=== PATIENT | male | born 1945 | race Caucasian/White ===

== ENCOUNTER 2023-09-29 20:28 | Inpatient (IN) | payer OTHER, SELFPAY ==
[2023-09-29] VITALS (11 sets, daily range): BP systolic 173–196; BP diastolic 66–85; BMI 25.5
--- NOTE | 2023-09-29 12:26 | ED.GENMED ---
History of Present Illness
<Candace Church PA-C - Last Filed: 09/29/23 20:37>
General
Chief Complaint: Abdominal Pain
Source: patient
Exam Limitations: none
Time Seen by Provider: 09/29/23 12:25
Nursing documentation reviewed up to this point in time: agreed with
Travel History
Have you had any contact with someone who has COVID-19?: No
Do you have any symptoms of coronavirus? Fever > 100 degrees, chills, cough, shortness of breath, sore throat, loss of taste or smell, muscle aches, or headache?: No
History of Present Illness
History of Present Illness:
78-year-old male with a past medical history of Alzheimer's dementia, stroke, asthma, coronary artery disease, hypothyroidism presenting the emergency department today with right upper quadrant pain x 2 days and loose stools since last night.
Patient is a poor historian due to his dementia, but reports that he has been complaining to her of pain in his right abdomen. Patient also has associated nausea with this but not had any vomiting. Patient denies fevers or chills.
reports that he has had a decreased appetite. Patient also has had radiation of this pain to the back. Currently, he denies pain but said he has been complaining nonstop at home. reports that he has a history of urosepsis and
cholelithiasis and both of those instances he was asymptomatic. also reports that he has been complaining to her that he feels generally ill and unwell. Patient himself denies dysuria, hematuria.
Past History
<Candace Church PA-C - Last Filed: 09/29/23 20:37>
Past History
ED Past Medical History: CAD, HTN, Hypercholesterolemia and Other (vertigo)
ED Past Surgical History: Cardiac (bypass 1987)
PSI?: No
Social History
Tobacco: Non-smoker
Alcohol: None
Drug: None
Personal:
Living: with family
Review of Systems
<Candace Church PA-C - Last Filed: 09/29/23 20:37>
Review of Systems
All Other Systems: ROS reviewed and negative except as documented in HPI and ROS
Phy Exam
<Candace Church PA-C - Last Filed: 09/29/23 20:37>
Physical Exam
Physical Exam:
Vitals: Patient's vital signs are stable
General: Patient is well-appearing, no acute distress
Skin: Warm dry, no rashes or lesions
Head: Normocephalic, atraumatic
Eyes: EOMs intact, PERRLA. No scleral icterus.
Cardiac: Regular rate and rhythm no murmurs
Pulm: Normal respiratory effort, no wheezes, rales, rhonchi
Abdomen: Patient has tenderness palpation in the right upper and right lower quadrant. Abdomen nondistended, no organomegaly.
Neuro: Awake and alert, patient moving all extremities.
Course
<JANNIE Myers Last Filed: 09/29/23 20:37>
Orders/Labs/Results
Orders:
Orders
09/29/23 12:42
IV Insert/Care/Rem.- Treatment PRN
09/29/23 12:51
Complete Blood Count/With Diff Urgent
Comprehensive Metabolic Panel Urgent
Lipase Urgent
09/29/23 14:31
Urinalysis Reflex To Culture Urgent
Date Specimen was Collected: 09/29/23
Time Specimen was Collected: 12:50
09/29/23 17:07
CT Abd/pelvis W Iv Cont Urgent
Comment:
Reason For Exam: right sided abdominal pain
09/29/23 18:31
STOOL [C difficile Antigen & Toxins] Urgent
JEANETTE Source: Feces/Stool
Specimen Description:
Stool Culture Urgent
JEANETTE Source: Feces/Stool
Specimen Description:
09/29/23 19:17
CefTRIAXone [Rocephin] 2,000 mg IV NOW STA
MetroNIDAZOLE 500 MG/100 ML [Flagyl 500 mg] 100 ml IV NOW
09/29/23 19:34
Sterile Water [Sterile Water For Injection] 20 ml .ROUTE .STK-MED
09/29/23 19:45
Admit/Transfer Patient As Directed
Co-Sign Provider:
Level of Care: Inpatient admission
Assign to:: Medical/Surgical
Physician / Group: htay
Diagnosis: Acute enterocolitis.
Reason for Hospitalization: Acute enterocolitis.
Expected length of stay greater than two midnights?: Yes
ELOS- Estimated Length of Stay in days: 3
I certify the patient meets the requirements for IP care: Yes
09/29/23 19:47
Code Status As Directed
Resuscitation Status: Full Code
Abnormal Lab Results
09/29/23
12:51
WBC 12.7 H 10^3/uL
(4.8-10.8)
RBC 4.65 L 10^6/uL
(4.70-6.10)
Hgb 11.4 L g/dL
(13.0-18.0)
Hct 37.6 L %
(39.0-52.0)
MCH 24.5 L pg
(27.0-31.0)
MCHC 30.3 L g/dL
(33.0-37.0)
RDW 16.4 H %
(11.5-14.5)
Absolute Neuts (auto) 11.1 H 10^3/uL
(1.4-6.5)
Absolute Lymphs (auto) 0.7 L 10^3/uL
(1.2-3.4)
Absolute Monos (auto) 0.8 H 10^3/uL
(0.1-0.6)
Neutrophils % 87.4 H %
(42.2-75.2)
Lymphocytes % 5.1 L %
(20.5-51.1)
Potassium 5.2 H mmol/L
(3.5-5.1)
09/29/23 12:51
09/29/23 12:51
Vital Signs
Initial and Last Documented VS:
Initial Vital Signs
Temp Pulse Resp BP Pulse Ox
98.3 F 60 18 175/82 98
09/29/23 12:18 09/29/23 12:18 09/29/23 12:18 09/29/23 12:18 09/29/23 12:18
Last Documented Vital Signs
Temp Pulse Resp BP Pulse Ox
98.0 F 60 18 191/78 98
09/29/23 19:56 09/29/23 12:18 09/29/23 12:18 09/29/23 19:01 09/29/23 12:18
<Brett Luu MD - Last Filed: 09/29/23 17:44>
Orders/Labs/Results
Orders:
Orders
09/29/23 12:42
IV Insert/Care/Rem.- Treatment PRN
09/29/23 12:51
Complete Blood Count/With Diff Urgent
Comprehensive Metabolic Panel Urgent
Lipase Urgent
09/29/23 14:31
Urinalysis Reflex To Culture Urgent
Date Specimen was Collected: 09/29/23
Time Specimen was Collected: 12:50
09/29/23 17:07
CT Abd/pelvis W Iv Cont Urgent
Comment:
Reason For Exam: right sided abdominal pain
09/29/23 18:31
STOOL [C difficile Antigen & Toxins] Urgent
JEANETTE Source: Feces/Stool
Specimen Description:
Stool Culture Urgent
JEANETTE Source: Feces/Stool
Specimen Description:
09/29/23 19:17
CefTRIAXone [Rocephin] 2,000 mg IV NOW STA
MetroNIDAZOLE 500 MG/100 ML [Flagyl 500 mg] 100 ml IV NOW
09/29/23 19:34
Sterile Water [Sterile Water For Injection] 20 ml .ROUTE .K-MED
09/29/23 19:45
Admit/Transfer Patient As Directed
Co-Sign Provider:
Level of Care: Inpatient admission
Assign to:: Medical/Surgical
Physician / Group: htay
Diagnosis: Acute enterocolitis.
Reason for Hospitalization: Acute enterocolitis.
Expected length of stay greater than two midnights?: Yes
ELOS- Estimated Length of Stay in days: 3
I certify the patient meets the requirements for IP care: Yes
09/29/23 19:47
Code Status As Directed
Resuscitation Status: Full Code
Abnormal Lab Results
09/29/23
12:51
WBC 12.7 H 10^3/uL
(4.8-10.8)
RBC 4.65 L 10^6/uL
(4.70-6.10)
Hgb 11.4 L g/dL
(13.0-18.0)
Hct 37.6 L %
(39.0-52.0)
MCH 24.5 L pg
(27.0-31.0)
MCHC 30.3 L g/dL
(33.0-37.0)
RDW 16.4 H %
(11.5-14.5)
Absolute Neuts (auto) 11.1 H 10^3/uL
(1.4-6.5)
Absolute Lymphs (auto) 0.7 L 10^3/uL
(1.2-3.4)
Absolute Monos (auto) 0.8 H 10^3/uL
(0.1-0.6)
Neutrophils % 87.4 H %
(42.2-75.2)
Lymphocytes % 5.1 L %
(20.5-51.1)
Potassium 5.2 H mmol/L
(3.5-5.1)
09/29/23 12:51
09/29/23 12:51
Vital Signs
Initial and Last Documented VS:
Initial Vital Signs
Temp Pulse Resp BP Pulse Ox
98.3 F 60 18 175/82 98
09/29/23 12:18 09/29/23 12:18 09/29/23 12:18 09/29/23 12:18 09/29/23 12:18
Last Documented Vital Signs
Temp Pulse Resp BP Pulse Ox
98.0 F 60 18 191/78 98
09/29/23 19:56 09/29/23 12:18 09/29/23 12:18 09/29/23 19:01 09/29/23 12:18
<Candace Church PA-C - Last Filed: 09/29/23 20:37>
MDM/Problems Addressed
Differential Diagnosis Includes:
Differentials include cholelithiasis, choledocholithiasis, cholecystitis, appendicitis, nephrolithiasis, gastroenteritis, C. difficile infection
MDM/Problems Addressed:
Abdominal pain
loose stools
Chronic conditions affecting care: HTN, CAD and Other (common bile duct stone, nephrolithiasis, hypothyroidism, hyperlipidemia)
Acute Exacerbation and/or Progression of Chronic Illness: HTN and CAD
<Candace Church PA-C - Last Filed: 09/29/23 20:37>
*Pulse Oximetry
Patient hypoxic: no
*Critical Care Note
Total Time (30-74mins, 75-104mins- exclusive of procedures): Not Applicable
Data Reviewed
Review of Other/Old Records Reveals: Records (reviewed ER physician documentation from 05/17/23) and Discharge Summary (Reviewed discharge summary from 05/24/2023)
Source: patient
<Candace Church PA-C - Last Filed: 09/29/23 20:37>
Patient Management
Escalation/DeEscalation of care consider admission/obs:
78 y/o male hx of choledocholithiasis, HTN, CAD, Alzheimer's dementia, presenting to the ER today with RUQ pain, nausea, diarrhea. CT shows gallbladder wall thickening but no cystic duct obstruction. VSS, LFTs/bili WNL. History and physical
concerning for cholecystitis and enterocolitis. Will admit for acute acalculous cholecystitis, ceftriaxone and metronidazole started.
ED Attending Note
<Candace Church PA-C - Last Filed: 09/29/23 20:37>
-
Portions of this chart may have been created with voice recognition software.� Occasional wrong word or��sound alike� substitutions may have occurred due to the inherent limitations of voice recognition software.
<Brett Luu MD - Last Filed: 09/29/23 17:44>
ED Attending Note
Patient seen and examined by attending physician: Yes
ED Attending Note:
HPI: 78-year-old male with past medical history as documented presents with his for evaluation of abdominal pain and loose stools. Patient is a very poor historian due to significant dementia and provides most of history. She says that
patient began complaining of some abdominal pain yesterday and seem to be pointing towards his right upper quadrant. She says that since yesterday he has had multiple episodes of loose voluminous stools that are foul-smelling. Brought to the
emergency room for assessment. She denies any vomiting. Patient has not had a fever. He has not had any respiratory symptoms. She says he has not had similar symptoms in the past.
ROS: Positive for abdominal pain and diarrhea; negative for vomiting, fever, chills, urinary symptoms
Physical exam:
General: Awake, alert, no acute distress
Head: Normocephalic, atraumatic
Eyes: Conjunctiva normal, sclera anicteric
Throat: Airway intact, handling secretions
Neck: Trachea midline
Lungs: Clear to auscultation bilaterally, no wheezing, rales, rhonchi
Heart: Regular rate and rhythm, no murmurs, gallops, or rubs
Abd: Soft, non distended, mildly tender right upper quadrant and epigastric region with no peritoneal signs and no abdominal masses
Neuro: No gross deficits
Skin: no rash
Extremities: Warm well-perfused
Differential diagnosis: Gastroenteritis, cholecystitis, cholelithiasis, pancreatitis, colitis
Medical decision m[age]-year-old male presents for evaluation of abdominal pain apparently worse right upper quadrant associated with profuse diarrhea. Hypertensive but otherwise normal vitals here. Exam as above. Plan to place an IV check
labs including a CBC and a CMP, lipase; will check CT of the abdomen pelvis. Will monitor closely reassess after the above. Suspect likely an enteritis or colitis and can be treated conservatively.
Chronic conditions affecting care: Dementia
Acute exacerbation or progression of chronic illness: Acutely hypertensive
History source: Patient,
Data reviewed: Prior labs, prior visits, medications
Medications/testing considered: N/A
Social determinants of health: N/A
Discussion with other providers: N/A
Discharge Plan
Departure
Patient Disposition: Admit
Date of Disposition: 09/29/23
Time of Disposition: 19:17
Presentation/result/management discussed w/ accepting MD/DO: Hospitalist
Patient with high blood pressure during this ER visit?: Yes
Condition: Fair
Discharge Problem:
Cholecystitis, Enterocolitis
Prescriptions:
No Action
famotidine [Pepcid AC] 20 MG tablet
20 mg PO BID
Co Q-10 300 MG capsule
300 mg PO HS
losartan 50 mg Tablet
50 mg PO HS
Aimovig Autoinjector 140 mg/mL Auto-Injector
140 mg SC QMONTH
Ubrelvy 50 mg Tablet
50 mg PO PRN PRN (Reason: migraine)
Rx Instructions:
10 tablet per month
levothyroxine 75 mcg Tablet
75 mcg PO DAILY
paroxetine HCl [Paxil] 10 mg Tablet
10 mg PO HS
donepezil 5 mg Tablet
5 mg PO DAILY
Men's 50 Plus Multivitamin 400-20-370 mcg Tablet
1 tab PO NOON
nifedipine 30 mg tablet extended release
30 mg PO HS
ibuprofen 600 mg Tablet
600 mg PO Q6H PRN (Reason: mild pain )
ezetimibe [Zetia] 10 mg Tablet
10 mg PO DAILY
memantine 10 mg Tablet
10 mg PO BID@1200,2200
aspirin 81 mg Tablet,Delayed Release (Dr/Ec)
81 mg PO DAILY
Referrals:
Sangita Joyce DO [Family Provider] -
Interventions
Interventions:
*Risk Screen - Suicide Last Done: 09/29/23 13:03
*General Assessment Last Done: 09/29/23 12:18
*Neglect/Abuse Screening Last Done: 09/29/23 13:03
ED- Fall Risk Assessment Last Done: 09/29/23 13:03
*ED COVID-19 Vaccine History Last Done: 09/29/23 12:18
GA-Oqhpab-Ywzsjjmson Assessment Last Done: 09/29/23 13:03
Discharge Date and Time
Print Language: CHINESE
[2023-09-29 13:13] LABS: % Basophils 0.4 % (0-2); % Eosinophils 0.5 % (0-6); % Immature Granulocytes 0.3 % (0-0.5); % Lymphocytes 5.1 % (20.5-51.1); % Monocytes 6.3 % (1.7-9.3); % Neutrophils 87.4 % (42.2-75.2); Absolute Basophils 0.1 10^3/uL (0-0.2); Absolute Eosinophils 0.1 10^3/uL (0-0.7); Absolute Lymphocytes 0.7 10^3/uL (1.2-3.4); Absolute Monocytes 0.8 10^3/uL (0.1-0.6); Absolute Neutrophils 11.1 10^3/uL (1.4-6.5); Hematocrit 37.6 % (39.0-52.0); Hemoglobin 11.4 g/dL (13.0-18.0); Mean Corp Hgb Conc. 30.3 g/dL (33.0-37.0); Mean Corpuscular Hgb 24.5 pg (27.0-31.0); Mean Corpuscular Volume 80.9 fL (80.0-94.0); Mean Platelet Volume 8.8 fL (7.4-10.4); Nucleated Red Blood Cells % 0 % (-); Platelet Count 233 10^3/uL (130-400); Red Blood Cell Count 4.65 10^6/uL (4.70-6.10); Red Cell Dist. Width 16.4 % (11.5-14.5); White Blood Cell Count 12.7 10^3/uL (4.8-10.8)
[2023-09-29 13:29] LABS: ALT (SGPT) 19 U/L (0-50); AST (SGOT) 21 U/L (17-59); Albumin 4.1 g/dl (3.5-5.0); Alkaline Phosphatase 80 U/L (38-126); Blood Urea Nitrogen 18 mg/dl (9-20); Calcium 9.4 mg/dl (8.4-10.2); Carbon Dioxide 30 mmol/L (22-30); Chloride 105 mmol/L (98-107); Glucose 98 mg/dl (70-99); Lipase 149 U/L (23-300); Potassium 5.2 mmol/L (3.5-5.1); Sodium 137 mmol/L (135-145); Total Bilirubin 0.6 mg/dl (0.2-1.3); Total Protein 6.8 g/dl (6.3-8.2); eGFR > 60.00
[2023-09-29 14:41] LABS: Urine Albumin Trace (Neg - Trace); Urine Bilirubin Negative (Negative); Urine Character Clear (Clear); Urine Color Yellow; Urine Glucose Negative (Negative); Urine Ketone Negative (Negative); Urine Leukocyte Negative (Negative); Urine Nitrite Negative (Negative); Urine Occult Blood Negative (Negative); Urine Urobilinogen Negative (Neg - 1+)
--- NOTE | 2023-09-29 19:40 | HPS.HSE ---
Addendum entered and electronically signed by Bernabe Erwin MD 09/30/23 12:49:
Correction for typo in HPI
78F Poor Historian HX Dementia (CLOVIS) stroke, CAD , choledocholithiasis <del>cholecystectomy</del>, known Biliary air from previous ERCP/sphincterotomy <del>cholecystectomy</del> seen at ER for evaluation for acute RUQ abdominal pain.
Addendum entered and electronically signed by Bernabe Erwin MD 09/29/23 20:17:
Correction:
@ ER
Afebrile , Hemodynamically stable
Mildly elevated WCC <del>nl</del> <del>WCC</del>
unremarkable LFTs of RUQ abdominal pain.
Original Note:
Family Physician
-
Family Physician: Sangita Joyce
Chief Complaint
-
RUQ abdominl pain
History of Present Illness
78F Poor Historian HX Dementia (CLOVIS) stroke, CAD , cholecystectomy, known Biliary air from previous cholecystectomy seen at ER for evaluation for acute RUQ abdominal pain.
RUQ abdominal pain;
Acute onset x last 2days
Pointing toward RUQ abdomen
+ Nausea but no vomiting
+ loose stools
Poor appetite
No fever and chills
HX Choledocholithiasis
@ ER
Afebrile , Hemodynamically steble
nl WCC
unremarkable LFTs of RUQ abdominal pain.
Medical History
Past Medical History
Past Medical History: Reports Other
Additional Past Medical History:
Alzheimer's dementia without behavioral problems
History of cholecystectomy
Biliary air from previous cholecystectomy
Essential hypertension
Hypothyroidism
History of coronary artery disease and bypass
History of stroke
History of parathyroid surgery in 1999
Migraine
Choledocholithiasis
History vertigo
Past Surgical History: Reports Cardiac (Cardiac (bypass 1987)))
Social History
Tobacco: Non-smoker
Alcohol: None
Drug: None
Personal:
Living: With Family
Family History
Family History: Not pertinent
Allergies / Home Medications
Allergies reflects when Allergies were last updated in [facility].
Home Medications with original date entered in [facility]
Allergy/Medication List:
Allergies
Allergy/AdvReac Type Severity Reaction Status Date / Time
No Known Allergies Allergy Verified 09/29/23 12:21
Home Medications
coenzyme Q10 300 mg capsule (Co Q-10) 300 mg PO HS Supplement 06/28/17
famotidine 20 mg tablet (Pepcid AC) 20 mg PO BID Gastrointestinal issue 06/28/17
erenumab-aooe 140 mg/mL subcutaneous auto-injector (Aimovig Autoinjector) 140 mg SC QMONTH migraine 02/15/22
losartan 50 mg tablet 50 mg PO HS Blood pressure 02/15/22
ubrogepant 50 mg tablet (Ubrelvy) 50 mg PO PRN PRN migraine 02/15/22
levothyroxine 75 mcg tablet 75 mcg PO DAILY Thyroid 12/29/22
paroxetine HCl 10 mg tablet (Paxil) 10 mg PO HS 05/19/23
donepezil 5 mg tablet 5 mg PO DAILY 06/18/23
wwytsextwjvv-xge-zdurm acid-vit K-lycop 400 mcg-20 mcg-370 mcg tablet (Men's 50 Plus Multivitamin) 1 tab PO NOON 06/18/23
nifedipine 30 mg tablet,extended release 30 mg PO HS 06/18/23
aspirin 81 mg tablet,delayed release 81 mg PO DAILY 09/29/23
ezetimibe 10 mg tablet (Zetia) 10 mg PO DAILY 09/29/23
ibuprofen 600 mg tablet 600 mg PO Q6H PRN mild pain 09/29/23
memantine 10 mg tablet 10 mg PO BID@1200,2200 09/29/23
Review of Systems
-
Constitutional: Reports No Symptoms
EENT: Reports No Symptoms
Respiratory: Reports No Symptoms
Cardiac: Reports No Symptoms
Abdomen/GI: Reports See HPI, Abdominal Pain, Nausea and Diarrhea; Denies Vomiting
: Reports No Symptoms
Musculoskeletal: Reports No Symptoms
Skin: Reports No Symptoms
Neurological: Reports No Symptoms
Endocrine: Reports No Symptoms
Hematologic/Lymphatic: Reports No Symptoms
Psych: Reports No Symptoms
Physical Exam
Vital Signs
Vital Signs
Temp Pulse Resp BP Pulse Ox
98.3 F 60 18 177/76 98
09/29/23 12:18 09/29/23 12:18 09/29/23 12:18 09/29/23 16:00 09/29/23 12:18
Physical Exam
General: Well Developed and Comfortable; No Appears in Distress
HEENT: NormoCephalic, Anicteric and Moist mucous membranes; No Pharyngeal Efythema
Respiratory: Clear; No Wheezes, Rales or Rhonchi
Cardiac: S1/S2, Regular Rhythm and Bradycardia
Breast: Deferred by me
GI: Soft, Non Distended, Normal Bowel Sounds and Tender (at RUQ and RLQ )
Rectal: Deferred by Provider
Genito-urinary: Deferred by me
Musculoskeletal: No Edema
Skin: Warm and Dry
Neuro: Awake, Alert and Other (pleasantly confused )
Psych: Calm
Laboratory Results
-
09/29/23 12:51
09/29/23 12:51
Laboratory Results
Total Bilirubin 0.6 mg/dl (0.2-1.3) 09/29/23 12:51
AST 21 U/L (17-59) 09/29/23 12:51
ALT 19 U/L (0-50) 09/29/23 12:51
Alkaline Phosphatase 80 U/L (38-126) 09/29/23 12:51
Lipase 149 U/L (23-300) 09/29/23 12:51
Data Reviewed
-
CT Scan: Report Reviewed by me
Lab Data: Labs Reviewed by me
Old Records: Reviewed
Impression/Plan
-
Reviewed VS: Afebrile HR 60 BP 190/80 - 175/75 RR18 POx 98
Data
WCC 12.7
Hgb 11.4 - baseline hi 9s to mid 10s
K 5.2
Cr 1.2 eGFR > 60
nl TB nl AST nl ALT nl AKP
nl Lipase
NEG UA
09/29/23 CT Abd/pelvis W Iv Cont
1. Moderate wall thickening and submucosal edema involving distal ileal small bowel loops in the lower abdomen and pelvis (including the terminal ileum) in the cecum and ascending colon suggesting an ACUTE ENTEROCOLITIS (probably infectious and
less likely inflammatory or ischemic in etiology).
2. Mild to moderate gallbladder wall thickening and edema which appears new from 05/18/2023, but no evidence for cystic duct obstruction given the presence of air in the gallbladder lumen.
3. Severe pneumobilia in the left lobe of the liver consistent with a previous biliary sphincterotomy.
4. Mild hepatomegaly.
5. Severe diverticulosis in the distal descending and sigmoid colon.
6. Severely enlarged prostate gland.
7. Moderate diffuse urinary bladder wall thickening and trabeculation which is likely secondary to chronic urinary bladder outlet obstruction (possible superimposed acute cystitis).
8. Fusiform infrarenal abdominal aortic aneurysm (2.8 cm AP dimension).
9. Severe calcific atherosclerotic plaque in the abdominal aorta, iliac, and femoral arteries.
10. Multiple nonobstructing left intrarenal calculi.
11. Moderate number of bilateral renal cysts.
Last hospitalist admission: 05/18/23 - 05/23/23
Complicated urinary tract infection from Escherichia coli
Large obstructing right ureteral stone and obstructive uropathy
Acute kidney injury
Acute blood loss anemia
Hematuria
Left arm superficial venous thrombosis
ASSESSMENT & PLAN
CT suggestive of Acute enterocolitis. probably infectious and less likely inflammatory or ischemic in etiology
- clear and IVF
- Empiric Zosyn
- stool Cx and Norovirus PCR
Acute RUQ pain with nl LFTs with new mild /moderate GBWT and edema compare to 05/18/2023
HX Choledocholithiasis HX ERCP and sphincterotomy
No evidence for cystic duct obstruction given the presence of air in the gallbladder lumen.
Known HX Severe pneumobilia in the left lobe of the liver consistent with a previous biliary sphincterotomy
- clear and observe
- Trend WCC and LFts
- MRI w/wo including MRCP in AM
- GS and GI consult in AM
C urrent UA is unremarkable
HX complicated UTI suspected secondary to large obstructing right ureteral stone status post right-sided PCN on 05/18/23
HX Bilateral nephrolithiasis (several stones)
HX nephroureteral stent placement by IR on 41
Alzheimer's Dementia
-Patient pleasantly disoriented without any behavioral problems
Essential HTN
-cont. ADULT LITERACY TEACHER Losartan, Nifedipine
Hypothyroid
- maintain on LT4
CAD HX , CABG HX
-- Okay to continue Aspirin for now
Known HX
HX CVA
HX parathyroid surgery in 1999
Migraine
Vertigo.
DVT Px: SCD
Code: Full code
IP MS
[2023-09-29] MEDS: ROCEPHIN 2000 MG IV (19:47)
[2023-09-29] MEDS: FLAGYL 500 MG 100 IV (19:52)
--- NOTE | 2023-09-29 22:30 | PTCARENOTE ---
Pt received from ED. A&Ox1, baseline Alzheimer dementia. VSS, NAD. Pt with no complaints of pain or loose BMs at this time. Bed alarm in place, pt reoriented to surroundings frequently
[2023-09-29] MEDS: COZAAR 50 MG PO (22:39)
[2023-09-29] MEDS: NSS 1000 IV (22:40)
[2023-09-30] MEDS: ZOSYN 50 IV ×4 (01:53→21:06)
[2023-09-30] MEDS: SYNTHROID 75 MCG PO (05:10)
[2023-09-30 05:36] LABS: Hematocrit 35.9 % (39.0-52.0); Hemoglobin 11.4 g/dL (13.0-18.0); Mean Corp Hgb Conc. 31.8 g/dL (33.0-37.0); Mean Corpuscular Hgb 24.6 pg (27.0-31.0); Mean Corpuscular Volume 77.5 fL (80.0-94.0); Mean Platelet Volume 9.2 fL (7.4-10.4); Platelet Count 234 10^3/uL (130-400); Red Blood Cell Count 4.63 10^6/uL (4.70-6.10); Red Cell Dist. Width 16.5 % (11.5-14.5); White Blood Cell Count 11.5 10^3/uL (4.8-10.8)
[2023-09-30 06:31] LABS: ALT (SGPT) 21 U/L (0-50); AST (SGOT) 30 U/L (17-59); Alkaline Phosphatase 74 U/L (38-126); Blood Urea Nitrogen 18 mg/dl (9-20); Carbon Dioxide 24 mmol/L (22-30); Chloride 103 mmol/L (98-107); Estimated Creatinine Clearance 52 ml/min; Glucose 98 mg/dl (70-99); Lipase 78 U/L (23-300); Potassium 4.2 mmol/L (3.5-5.1); Sodium 134 mmol/L (135-145); Total Protein 6.6 g/dl (6.3-8.2); eGFR > 60.00
[2023-09-30 07:00] VITALS: BP 162/73
--- NOTE | 2023-09-30 07:30 | CON.GI ---
Addendum entered and electronically signed by Kenneth August MD 09/30/23 08:51:
Patient seen and examined, agree with nurse practitioner note. Patient is seen with his who adds more detail. He started having nonbloody diarrhea over the weekend, multiple episodes. No vomiting, fever or chills. Currently the patient
denies any pain in his abdomen, though does complain of some back pain. His past history was significant for extensive choledocholithiasis, status post multiple ERCPs and has done well since then. CT scan now shows significant enteritis, as well
as pneumobilia including the gallbladder making cholecystitis very unlikely. On exam he has no abdominal tenderness. Given his acute diarrhea and enteritis noted on CT scan likely cause of his pain is infectious gastroenteritis, again doubt
cholecystitis given pneumobilia including the gallbladder implying cystic duct patency. At this point would continue supportive care, will advance diet, if has further diarrhea we will check stool studies. If continues to improve then possible
discharge without antibiotics tomorrow. I discussed with his at length.
Original Note:
Consultation
-
Date/Time Consultation Requested: 09/29/232204
Date/Time Consultation Performed: 09/30/23 0730
Requesting Provider: Dr. Erwin
Performing Provider: Dr. August/COURTNEY Babb
Reason for Consultation: cholecystitis
Medical History
Chief Complaint / HPI
Chief Complaint: abd pain
History of Present Illness:
78-year-old male with past medical history of CAD, CVA, hypertension, hyperlipidemia, hypothyroidism with Alzheimer's and dementia presents to the emergency room with reports of abdominal pain. Patient is a poor historian and cannot give any
significant past medical history. He does know that he is in the hospital and states that he had diarrhea a couple days prior to admission but cannot give any other significant history. He states at the present time he is feeling 'okay'. Per
emergency room records his states that he has had decreased appetite and right-sided abdominal pain. As well as general unwell feeling. The patient is currently on a clear liquid diet. He is currently denying any abdominal pain. He has had
no recorded bowel movements overnight. He elicits no pain or states that he has noted discomfort upon palpation of his abdomen.WBC 11.5 down from 12.7, hemoglobin 11.4, hematocrit 35.9, platelets 234, sodium 134, potassium 4.2, chloride 103, CO2
24, BUN 18, creatinine 1.1, glucose 98, total bilirubin 1.0, AST 30, ALT 21, alk phos 74, UA negative. CT of the abdomen and pelvis with IV contrast shows moderate wall thickening and submucosal edema involving the distal ileum small bowel loops
and the lower abdomen and pelvis including the terminal ileum and cecum and ascending colon suggesting acute enterocolitis. Mild to moderate gallbladder wall thickening and edema which appears new from 05/18/2023 but no evidence for cystic duct
obstruction. Severe pneumobilia in the left lobe of the liver consistent with previous biliary sphincterotomy. Mild hepatomegaly. Severe diverticulosis in the distal descending and sigmoid colon. Severely enlarged prostate gland. Moderately
diffuse urinary bladder wall thickening and trabeculation which is likely secondary to chronic urinary bladder outlet obstruction. Fusiform infrarenal abdominal aortic aneurysm. Severe calcific atherosclerotic plaque in the abdominal aorta, iliac
and femoral arteries. Multiple nonobstructing left intrarenal calculi. Moderate number of bilateral renal cysts. Patient was initially given dose of ceftriaxone and Flagyl. This was then transitioned over to Zosyn. The patient has not required
any analgesia or antiemetics.
Past Medical History
Past Medical History: Asthma, CAD, CVA, HTN, Hypercholesterolemia, Hypothyroidism and Other (vertigo, Alzheimer's, dementia, urosepsis)
Past Surgical History: Cardiac (cardiac bypass (1987)) and Other (loop recorder)
Social History
Tobacco: Non-Smoker
Alcohol: None
Drug: None
Personal:
Living: With Family
Family History
Family History: Unable to Obtain
Allergies / Home Medications
Allergy/AdvReac Type Severity Reaction Status Date / Time
No Known Allergies Allergy Verified 09/29/23 12:21
�Medication �Instructions �Recorded
coenzyme Q10 300 mg capsule (Co 300 mg PO HS Supplement 06/28/17
Q-10)
famotidine 20 mg tablet (Pepcid AC) 20 mg PO BID Gastrointestinal issue 06/28/17
erenumab-aooe 140 mg/mL 140 mg SC QMONTH migraine 02/15/22
subcutaneous auto-injector
(Aimovig Autoinjector)
losartan 50 mg tablet 50 mg PO HS Blood pressure 02/15/22
ubrogepant 50 mg tablet (Ubrelvy) 50 mg PO PRN PRN migraine 02/15/22
levothyroxine 75 mcg tablet 75 mcg PO DAILY Thyroid 12/29/22
paroxetine HCl 10 mg tablet (Paxil) 10 mg PO HS 05/19/23
donepezil 5 mg tablet 5 mg PO DAILY 06/18/23
fnayysviabdi-gfe-duaan acid-vit 1 tab PO NOON 06/18/23
K-lycop 400 mcg-20 mcg-370 mcg
tablet (Men's 50 Plus Multivitamin)
nifedipine 30 mg tablet,extended 30 mg PO HS 06/18/23
release
aspirin 81 mg tablet,delayed 81 mg PO DAILY 09/29/23
release
ezetimibe 10 mg tablet (Zetia) 10 mg PO DAILY 09/29/23
ibuprofen 600 mg tablet 600 mg PO Q6H PRN mild pain 09/29/23
memantine 10 mg tablet 10 mg PO BID@1200,2200 09/29/23
Review of Systems
-
Unable to obtain full review of systems at this time due to: Dementia
All other systems: A 12 pt ROS was Negative except as stated above in HPI
Vital Signs
Temp Pulse Resp BP Pulse Ox
97.9 F 70 16 177/77 97
09/29/23 22:24 09/29/23 22:39 09/29/23 22:24 09/29/23 22:39 09/29/23 22:24
Physical Exam
Exam
General: No Apparent Distress
HEENT: Anicteric
Respiratory: Clear (anterior)
Cardiac: Regular Rhythm
GI: Soft, Non Tender, Non Distended and Normal Bowel Sounds
Skin: Warm and Dry
Neuro: Awake, Alert, Oriented (to person and 'hospital' only. ) and Other (Patient poor historian. )
Psych: Calm
Results
WBC 11.5 10^3/uL (4.8-10.8) H 09/30/23 05:26
Hgb 11.4 g/dL (13.0-18.0) L 09/30/23 05:26
Hct 35.9 % (39.0-52.0) L 09/30/23 05:26
MCV 77.5 fL (80.0-94.0) L 09/30/23 05:26
Plt Count 234 10^3/uL (130-400) 09/30/23 05:26
Absolute Neuts (auto) 11.1 10^3/uL (1.4-6.5) H 09/29/23 12:51
Sodium 134 mmol/L (135-145) L 09/30/23 05:26
Potassium 4.2 mmol/L (3.5-5.1) 09/30/23 05:26
Chloride 103 mmol/L (98-107) 09/30/23 05:26
Carbon Dioxide 24 mmol/L (22-30) 09/30/23 05:26
BUN 18 mg/dl (9-20) 09/30/23 05:26
Creatinine 1.1 mg/dL (0.7-1.3) 09/30/23 05:26
Calcium 9.0 mg/dl (8.4-10.2) 09/30/23 05:26
Total Bilirubin 1.0 mg/dl (0.2-1.3) 09/30/23 05:26
AST 30 U/L (17-59) 09/30/23 05:26
ALT 21 U/L (0-50) 09/30/23 05:26
Alkaline Phosphatase 74 U/L (38-126) 09/30/23 05:26
Lipase 78 U/L (23-300) 09/30/23 05:26
Diagnostic Image Results:
CT Abd/Pelvis with IV contrast:
IMPRESSION:
1. Moderate wall thickening and submucosal edema involving distal ileal small bowel loops in the lower abdomen and pelvis (including the terminal ileum) in the cecum and ascending colon suggesting an ACUTE ENTEROCOLITIS (probably infectious and
less likely inflammatory or ischemic in etiology).
2. Mild to moderate gallbladder wall thickening and edema which appears new from 05/18/2023, but no evidence for cystic duct obstruction given the presence of air in the gallbladder lumen.
3. Severe pneumobilia in the left lobe of the liver consistent with a previous biliary sphincterotomy.
4. Mild hepatomegaly.
5. Severe diverticulosis in the distal descending and sigmoid colon.
6. Severely enlarged prostate gland.
7. Moderate diffuse urinary bladder wall thickening and trabeculation which is likely secondary to chronic urinary bladder outlet obstruction (possible superimposed acute cystitis).
8. Fusiform infrarenal abdominal aortic aneurysm (2.8 cm AP dimension).
9. Severe calcific atherosclerotic plaque in the abdominal aorta, iliac, and femoral arteries.
10. Multiple nonobstructing left intrarenal calculi.
11. Moderate number of bilateral renal cysts.
Electronically signed by Kam Jones MD 09/29/2023 6:44 PM
[employer] Dose Report: Up-to-date CT equipment and radiation dose reduction techniques were employed. CTDIvol: 10.9 mGy. DLP: 1063 mGy-cm.
Dictated By: Kam Jones MD.
Dictated Date & Time: 09/29/231820
Prior GI Procedures:
EGD:
Colonoscopy:
ERCP 12/31/22: - Difficult passage of duodenoscope, s/p ballon
�� � � � � � � � � � � dilation of pylorus, with scope stiftener.
�� � � � � � � � � � � - Extensive choledocholithiasis was found after
�� � � � � � � � � � � difficult cannulation, with 3mm precut sphincterotomy.
�� � � � � � � � � � � Partial removal was accomplished with biliary
�� � � � � � � � � � � sphincterotomy; some intrahepatic stones could not be
�� � � � � � � � � � � removed. A stent was inserted.
�� � � � � � � � � � � - One plastic stent was placed into the common bile
�� � � � � � � � � � � duct.
ERCP 03/08/23
- Gastric stenosis was found at the pylorus.
- Dilation performed at the pylorus.
- One stent from the biliary tree was seen in the
major papilla.
- A filling defect consistent with a stone was seen on
the cholangiogram.
- The middle third of the main bile duct was mildly
dilated.
- Choledocholithiasis was found. Complete removal was
accomplished by balloon extraction.
- One stent was removed from the biliary tree.
- The biliary tree was swept.
Assessment / Plan
-
78-year-old male with past medical history of CAD, CVA, hypertension, hyperlipidemia, hypothyroidism with Alzheimer's and dementia presents to the emergency room with reports of abdominal pain. Patient is a poor historian and cannot give any
significant past medical history. He does know that he is in the hospital and states that he had diarrhea a couple days prior to admission but cannot give any other significant history. He states at the present time he is feeling 'okay'. Per
emergency room records his states that he has had decreased appetite and right-sided abdominal pain. As well as general unwell feeling. The patient is currently on a clear liquid diet. He is currently denying any abdominal pain. He has had
no recorded bowel movements overnight. He elicits no pain or states that he has noted discomfort upon palpation of his abdomen.WBC 11.5 down from 12.7, hemoglobin 11.4, hematocrit 35.9, platelets 234, sodium 134, potassium 4.2, chloride 103, CO2
24, BUN 18, creatinine 1.1, glucose 98, total bilirubin 1.0, AST 30, ALT 21, alk phos 74, UA negative.
Impression:
Leukocytosis
Reports of loose stool, none here
Enterocolitis seen on imaging
Reports of abdominal pain, none currently-> gallbladder wall thickening and edema with normal LFTs
History of ERCP with sphincterotomy stone extractions x 2 (12/2022 and 02/2023)
Alzheimer's disease
Plan:
-If with bowel movement check stool studies, already ordered
-Continue clear liquids for now, patient tolerating
-Antiemetics as needed, has not required
-Analgesia if needed, has not required
-At the present time patient seems quite comfortable with no pain upon palpation at the present time
-Trend labs
-General surgery consult pending
Data Reviewed
-
CT Scan: Report Reviewed by me
Old Records: Reviewed
-
-
Thank you for consultation and allowing me to participate in the patient's care. Please call the reception centre manager GI physician during the after hours with any questions or concerns.
--- NOTE | 2023-09-30 08:51 | W.PN.UPDATE ---
Update Note
Progress Note Update
For billing purposes.
[2023-09-30] MEDS: PEPCID 20 MG PO (09:23)
[2023-09-30] MEDS: ZETIA 10 MG PO (09:23)
[2023-09-30] MEDS: ASPIR LOW (ENTERIC COATED) 81 MG PO (09:24)
--- NOTE | 2023-09-30 09:34 | CON.GS ---
Addendum entered and electronically signed by Terry Torres MD 09/30/23 10:48:
I saw and examined the patient independently.
The Adult Care Provider's note was reviewed and I agree with the note, assessment and plan except where noted below.
Comment: 78-year-old male with a history of dementia and choledocholithiasis status post ERCP x 2 who presents with 2-day history of diarrhea as well as initially anterior right upper quadrant pain then right back pain with thickening of the small
bowel as well as mild thickening of the gallbladder and expected pneumobilia. General surgery consulted for evaluation of the gallbladder and possible acute cholecystitis. Given the air in the gallbladder it is very unlikely that the cystic duct
is obstructed. He is not tender to palpation in the right upper quadrant. LFTs and lipase normal.
MRCP ordered which I think is reasonable. Unless there are stigmata of cholecystitis on the MRI, would just recommend outpatient follow-up to discuss elective cholecystectomy, particularly if there are stones noted on the MRI.
Agree with GI, favor gastroenteritis as underlying cause of his chief complaint.
Original Note:
Consultation
-
Date/Time Consultation Requested: 09/29/23 2200
Requesting Provider: Yaima
Reason for Consultation: New mild /moderate GBWT and edema, nl LFTs, HX Choledocholithiasis, ERCP
Medical History
-
Chief Complaint: ruq pain/diarrhea
History of Present Illness:
This is an 78 yo male with a h/o choledocholithiasis s/p ERCP x2 in 2022, CVA, CAD with CABG in the , and Alzheimer's dementia who presented through the ED last night with 2 days of diarrhea. His is at bedside and able to provide history
as the patient is a poor historian. His notes that on Saturday, they were in the car and he was incontinent of stool which is unusual for him. He has several episodes of diarrhea which persisted into Saturday with complaints of right sided pain
and back pain causing her to bring him in for evaluation. His last BM was last night in the ER with no diarrhea since that time. He is conversive but does not remember why he came to the hospital. He currently denies pain and nausea.
Past Medical History
Past Medical History: HTN and Hypercholesterolemia
Past Surgical History: Cardiac (CABG 1988, loop recorder), Orthopedic and Urological (ureteroscopy for stones)
Social History
Tobacco: Non-Smoker
Alcohol: None
Personal:
Living: With Family
Family History
Family History: Reviewed & Not Pertinent
Allergies / Home Medications
Allergy/AdvReac Type Severity Reaction Status Date / Time
No Known Allergies Allergy Verified 09/29/23 12:21
�Medication �Instructions �Recorded �Confirmed �Type
coenzyme Q10 300 mg capsule (Co 300 mg PO HS Supplement 06/28/17 09/29/23 History
Q-10)
famotidine 20 mg tablet (Pepcid AC) 20 mg PO BID Gastrointestinal issue 06/28/17 09/29/23 History
erenumab-aooe 140 mg/mL 140 mg SC QMONTH migraine 02/15/22 09/29/23 History
subcutaneous auto-injector
(Aimovig Autoinjector)
losartan 50 mg tablet 50 mg PO HS Blood pressure 02/15/22 09/29/23 History
ubrogepant 50 mg tablet (Ubrelvy) 50 mg PO PRN PRN migraine 02/15/22 09/29/23 History
levothyroxine 75 mcg tablet 75 mcg PO DAILY Thyroid 12/29/22 09/29/23 History
paroxetine HCl 10 mg tablet (Paxil) 10 mg PO HS 05/19/23 09/29/23 History
donepezil 5 mg tablet 5 mg PO DAILY 06/18/23 09/29/23 History
sducduczlpku-jlq-occki acid-vit 1 tab PO NOON 06/18/23 09/29/23 History
K-lycop 400 mcg-20 mcg-370 mcg
tablet (Men's 50 Plus Multivitamin)
nifedipine 30 mg tablet,extended 30 mg PO HS 06/18/23 09/29/23 History
release
aspirin 81 mg tablet,delayed 81 mg PO DAILY 09/29/23 09/29/23 History
release
ezetimibe 10 mg tablet (Zetia) 10 mg PO DAILY 09/29/23 09/29/23 History
ibuprofen 600 mg tablet 600 mg PO Q6H PRN mild pain 09/29/23 09/29/23 History
memantine 10 mg tablet 10 mg PO BID@1200,2200 09/29/23 09/29/23 History
Review of Systems
-
Unable to obtain full review of systems at this time due to: Dementia
History Source: Family
All other systems: Negative unless noted
A 10 point review of systems was completed, and was negative except as per HPI.
Physical Exam
Vital Signs
Temp Pulse Resp BP Pulse Ox
98.5 F 62 18 162/73 97
09/30/23 07:00 09/30/23 07:00 09/30/23 07:00 09/30/23 07:00 09/30/23 07:00
09/29/23 09/30/23 10/01/23
06:59 06:59 06:59
Actual Weight 75.977 kg
Body Mass Index (BMI) 25.5
Lab Results
09/30/23 05:26
09/30/23 05:26
WBC 11.5 10^3/uL (4.8-10.8) H 09/30/23 05:26
Hgb 11.4 g/dL (13.0-18.0) L 09/30/23 05:26
Hct 35.9 % (39.0-52.0) L 09/30/23 05:26
Plt Count 234 10^3/uL (130-400) 09/30/23 05:26
Abs Immat Gran (auto) 0.0 10^3/uL (0-0.05) 09/29/23 12:51
Neutrophils % 87.4 % (42.2-75.2) H 09/29/23 12:51
Physical Exam
General: Well Developed and No Apparent Distress
HEENT: Normocephalic and Moist Mucous Membranes
Respiratory: Non Labored Respirations
GI: Soft, Non Tender and Non Distended
Skin: Warm and Dry
Neuro: Awake, Alert and AO x 3
Psych: Calm
Data Reviewed
-
CT Scan: Image Personally Visualized and interpreted, Report Reviewed by me, Discussed with Physician, Discussed with Patient and Discussed with Family
Labs: Labs Reviewed by me, Discussed with Physician, Discussed with Patient and Discussed with Family
Old Records: Reviewed
Assessment / Plan
-
78 yo male h/o choledocholithiasis s/p ERCP x2 in 2022, CVA, CAD with CABG in the , and Alzheimer's dementia who presented through the ED last night with 2 days of diarrhea. Mild leukocytosis present. AFVSS. Currently, he is without abdominal
pain or tenderness. CT imaging with findings consistent with enterocolitis. Additionally there is mild to moderate gallbladder wall thickening and edema which appears new from 05/18/2023. No cholelithiasis noted, although a CT is not the ideal test
for visualizing stones. Ideally, a patient who has had choledocholithiasis would undergo elective cholecystectomy as well to prevent recurrence; however, given his dementia/medical history, his has concerns about surgery/anesthesia risks and
wishes to avoid surgery if possible. Suspect underlying cause of pain/diarrhea is gastroenteritis. Low suspicion for cholecystitis but given abnormal CT findings, will require further work up.
--Stool studies pending
--MRCP pending
--Possible HIDA scan pending MRI findings
--Diet as per GI
[2023-09-30 15:00] VITALS: BP 153/61
--- NOTE | 2023-09-30 15:08 | CM ---
Met with and his at bedside
Pt with hx of Alzheimers dementia. Lives with his in a split level home
Assist needed for adl's and cues given to perform tasks
DME - rolling walker and cane
SNF - has been to [facility] in past
HH - has had VN - unsure of agency. Jackie nurse also follows periodically
PCP - Dr Sangita Joyce
Pharm - [facility]
Plan - anticipate home with HH vs SNF when medically stable
--- NOTE | 2023-09-30 18:58 | W.PN.HOSP.TC ---
Addendum entered and electronically signed by Salvador Graham MD 09/30/23 22:15:
Attending Addendum-
I saw and evaluated the patient. I reviewed the resident�s note and agree with findings and plan as documented in the resident�s note. patient is poor historian due to dementia. No complaints. denies diarrhea urinary sxs, or abd pain Full 12 point
ROS reviewed and negative except as documented- limited by dementia- exam: gen nad heart RRR lungs clear abd soft NT ND LE no edema Neuro AAO x 1 Plan:
# Acute Enterocolitis- resolving cont zosyn for now, would dc on short course abx repeat CBC in am appreciate GI and surg input
# Advanced Dementia- restart meds
# Uncontrolled HTN- restart home meds
# Hypothyroidism- cont meds
# CAD s/p CABG- cont meds
# GERD- cont meds
# Migraine- cont meds
# Depression- cont meds
# HLD - cont meds
Dispo- DC home in am
Time spent coordinating care, review of plan of care with resident, review of records, med rec, consults, notes, labs, rads, d/w nursing friend � 53 mins
Original Note:
Today's Communication/Plan
-
.
Assessment / Plan
Assessment / Plan
78-year-old male with past medical history of hypertension, hyperlipidemia, hypothyroidism, Alzheimer's dementia, CAD, choledocholithiasis s/p ERCP in 2022 presents to the ER with right upper quadrant pain and loose stools and nausea.
Imaging
CT abdomen pelvis 09/29/2023-
1. Moderate wall thickening and submucosal edema involving distal ileal small bowel loops in the lower abdomen and pelvis (including the terminal ileum) in the cecum and ascending colon suggesting an ACUTE ENTEROCOLITIS (probably infectious and
less likely inflammatory or ischemic in etiology).
2. Mild to moderate gallbladder wall thickening and edema which appears new from 05/18/2023, but no evidence for cystic duct obstruction given the presence of air in the gallbladder lumen.
3. Severe pneumobilia in the left lobe of the liver consistent with a previous biliary sphincterotomy.
4. Mild hepatomegaly.
5. Severe diverticulosis in the distal descending and sigmoid colon.
6. Severely enlarged prostate gland.
7. Moderate diffuse urinary bladder wall thickening and trabeculation which is likely secondary to chronic urinary bladder outlet obstruction (possible superimposed acute cystitis).
8. Fusiform infrarenal abdominal aortic aneurysm (2.8 cm AP dimension).
9. Severe calcific atherosclerotic plaque in the abdominal aorta, iliac, and femoral arteries.
10. Multiple nonobstructing left intrarenal calculi.
11. Moderate number of bilateral renal cysts.
Conditions prior to admission
Alzheimer's dementia
Essential hypertension
Hyperlipidemia
Hypothyroidism
CABG
History of stroke
Migraine
Choledocholithiasis
S/p right renal stone extraction after laser lithotripsy, 07/04/2023
Impression/plan
#Right upper quadrant abdominal pain
Acute onset since 3 days, associated with loose stools, nausea
No fever/chills
History of choledocholithiasis
LFTs normal
Lipase normal
Leukocytosis, WBC 11.5
CT revealed evidence of acute enterocolitis
Started on ceftriaxone plus Flagyl, transition to empiric Zosyn
Stool cultures, norovirus PCR pending
GI consult
Analgesia antiemetics as required
Trend LFTs, WBC
Surgery consult�as per surgery gallstones unlikely, recommended MRCP
MRCP pending
CT evidence of moderate gallbladder wall thickening and edema
Outpatient follow-up to discuss elective cholecystectomy if MRI shows any stones
Possible HIDA pending MRI findings
Diet as per GI-advance diet as tolerated
# Essential hypertension
Patient on losartan 50 mg per oral
Blood pressure�162/73
Nifedipine extended release 30 mg per oral added
Monitor
# History of renal calculi
S/p laser lithotripsy of right renal calculi and stone extraction�07/04/[address] evidence of bilateral renal calculi and renal cysts
No evidence of UTI from urine analysis
# Alzheimer's dementia
Continue Aricept
Continue Namenda
# Hypothyroidism
Continue levothyroxine
#Hyperlipidemia
Continue Zetia
# History of CAD/CABG
Continue aspirin
#DVT prophylaxis SCD
Anticipated Discharge: 24 - 48 hours
Subjective/Interval History
-
Date of Service: September 30, 2023
Patient is conversive, but does not remember why he came to the hospital. Does not report any abdominal pain, nausea, vomiting.
Patient is a his baseline mental status as per nursing staff.
Objective Data
-
Vital Signs:
Vital Signs
Temp Pulse Resp BP Pulse Ox
97.8 F 63 18 153/61 97
09/30/23 15:00 09/30/23 15:00 09/30/23 15:00 09/30/23 15:00 09/30/23 15:00
I&O
09/29/23 09/30/23 10/01/23
06:59 06:59 06:59
Intake Total 480 / 480
Balance 480 / 480
Review of Systems
-
Unable to obtain full review of systems at this time due to: Dementia
All other systems: Reviewed and negative (Except as mentioned above)
Physical Exam
-
General: Well Developed and Well Nourished
HEENT: Normocephalic and Atraumatic
Respiratory: Clear to Auscultation
Cardiac: Regular Rhythm and S1/S2
GI: Soft, Nontender, Nondistended and Normal Bowel Sounds
Neuro: Awake and Alert
[2023-09-30] MEDS: PAXIL 10 MG PO (21:16)
[2023-09-30] MEDS: NAMENDA 10 MG PO (21:16)
[2023-09-30] MEDS: PROCARDIA XL (EXTENDED RELEASE) 30 MG PO (21:16)
[2023-09-30] MEDS: COZAAR 50 MG PO (21:16)
[2023-09-30 23:56] VITALS: BP 139/60
--- NOTE | 2023-10-01 01:40 | W.DCSUMMARY ---
Documented by User: Radha Oliveira MD, Resident 10/02/23 15:41
Discharge Summary
Discharge Data
Date of Admission: 09/29/23
Date of Discharge: 10/02/23
-
Pending Results: No
Hospital Course
DISCHARGE DIAGNOSIS:
Acute enterocolitis
Uncontrolled hypertension
Advanced dementia
HOSPITAL COURSE:
78-year-old male with past medical history of hypertension, hyperlipidemia, hypothyroidism, Alzheimer's dementia, CAD, choledocholithiasis s/p ERCP in 2022 presents to the ER with acute onset right upper quadrant pain, loose stools and nausea.
CT abdomen pelvis on 09/29/2023 showed evidence of acute enterocolitis, moderate gallbladder wall thickening and edema, but no evidence of cystic duct obstruction given the presence of air in the gallbladder lumen. Patient was afebrile, mental status
was at baseline, LFTs and lipase was normal. Leukocytosis with WBC of 11.5. Patient was started on ceftriaxone and Flagyl and transitioned to empiric Zosyn. Patient has not required any analgesia/antiemetics. Stool cultures, norovirus PCR
pending. GI and surgery were consulted. Diet advanced as tolerated. MRI ordered, to look for possibility of stones. His medications for advanced dementia and hypertension were restarted. He had an episode of high blood pressure at 162/ 73, and
his nifedipine extended release 30 mg was restarted. Rest of the home medications for hypothyroidism, CAD s/p CABG, GERD, migraine, depression, hyperlipidemia were continued during his hospital stay. MRI abdomen showed no evidence of
gallstones/acute cholecystitis. GI and surgery advised the patient to follow-up as required. Patient is discharged in a stable condition, with transition to oral antibiotics, Augmentin for 3 more days, for a total antibiotic course of 7 days.
Discharge Plan
-
Patient Disposition: Home (Routine Discharge)
Discharge Diagnosis/Procedures: Acute enterocolitis
Hypertension
Advanced dementia
Diet: As tolerated and Low Sodium
Referrals:
Sangita Joyce DO [Family Provider] -
Prescriptions:
New
amoxicillin-pot clavulanate [Augmentin] 500-125 mg tablet
1 tab PO BID Qty: 6 0RF
Continued
famotidine [Pepcid AC] 20 MG tablet
20 mg PO BID
Co Q-10 300 MG capsule
300 mg PO HS
losartan 50 mg Tablet
50 mg PO HS
Aimovig Autoinjector 140 mg/mL Auto-Injector
140 mg SC QMONTH
Ubrelvy 50 mg Tablet
50 mg PO PRN PRN (Reason: migraine)
Rx Instructions:
10 tablet per month
levothyroxine 75 mcg Tablet
75 mcg PO DAILY
paroxetine HCl [Paxil] 10 mg Tablet
10 mg PO HS
donepezil 5 mg Tablet
5 mg PO DAILY
Men's 50 Plus Multivitamin 400-20-370 mcg Tablet
1 tab PO NOON
nifedipine 30 mg tablet extended release
30 mg PO HS
ibuprofen 600 mg Tablet
600 mg PO Q6H PRN (Reason: mild pain )
ezetimibe [Zetia] 10 mg Tablet
10 mg PO DAILY
memantine 10 mg Tablet
10 mg PO BID@1200,2200
aspirin 81 mg Tablet,Delayed Release (Dr/Ec)
81 mg PO DAILY
Discharge Orders:
Discharge Patient (As Directed); Ordered 10/02/23
Ordered By: Héctor Huerta
Discharge Date and Time
Print Language: EQUATORIAL GUINEAN

Documented by User: Héctor Huerta MD 10/02/23 16:07
Discharge Summary
Discharge Data
Date of Admission: 09/29/23
Date of Discharge: 10/02/23
Discharge Plan
-
Patient Disposition: Home (Routine Discharge)
Discharge Diagnosis/Procedures: Acute enterocolitis
Hypertension
Advanced dementia
Diet: As tolerated and Low Sodium
Referrals:
Sangita Joyce DO [Family Provider] -
Prescriptions:
New
amoxicillin-pot clavulanate [Augmentin] 500-125 mg tablet
1 tab PO BID Qty: 6 0RF
Continued
famotidine [Pepcid AC] 20 MG tablet
20 mg PO BID
Co Q-10 300 MG capsule
300 mg PO HS
losartan 50 mg Tablet
50 mg PO HS
Aimovig Autoinjector 140 mg/mL Auto-Injector
140 mg SC QMONTH
Ubrelvy 50 mg Tablet
50 mg PO PRN PRN (Reason: migraine)
Rx Instructions:
10 tablet per month
levothyroxine 75 mcg Tablet
75 mcg PO DAILY
paroxetine HCl [Paxil] 10 mg Tablet
10 mg PO HS
donepezil 5 mg Tablet
5 mg PO DAILY
Men's 50 Plus Multivitamin 400-20-370 mcg Tablet
1 tab PO NOON
nifedipine 30 mg tablet extended release
30 mg PO HS
ibuprofen 600 mg Tablet
600 mg PO Q6H PRN (Reason: mild pain )
ezetimibe [Zetia] 10 mg Tablet
10 mg PO DAILY
memantine 10 mg Tablet
10 mg PO BID@1200,2200
aspirin 81 mg Tablet,Delayed Release (Dr/Ec)
81 mg PO DAILY
Discharge Orders:
Discharge Patient (As Directed); Ordered 10/02/23
Ordered By: Héctor Huerta
Discharge Date and Time
Print Language: EQUATORIAL GUINEAN
[2023-10-01] MEDS: NSS 1000 IV (01:41)
[2023-10-01] MEDS: ZOSYN 50 IV ×4 (01:42→21:05)
[2023-10-01] MEDS: SYNTHROID 75 MCG PO (05:32)
[2023-10-01 05:56] LABS: % Basophils 0.5 % (0-2); % Eosinophils 4.8 % (0-6); % Immature Granulocytes 0.3 % (0-0.5); % Lymphocytes 15.6 % (20.5-51.1); % Monocytes 14.9 % (1.7-9.3); % Neutrophils 63.9 % (42.2-75.2); Absolute Eosinophils 0.3 10^3/uL (0-0.7); Absolute Lymphocytes 0.9 10^3/uL (1.2-3.4); Absolute Monocytes 0.9 10^3/uL (0.1-0.6); Absolute Neutrophils 3.7 10^3/uL (1.4-6.5); Hematocrit 33.6 % (39.0-52.0); Hemoglobin 10.8 g/dL (13.0-18.0); Mean Corp Hgb Conc. 32.1 g/dL (33.0-37.0); Mean Corpuscular Hgb 24.4 pg (27.0-31.0); Mean Platelet Volume 8.7 fL (7.4-10.4); Nucleated Red Blood Cells % 0 % (-); Platelet Count 203 10^3/uL (130-400); Red Blood Cell Count 4.42 10^6/uL (4.70-6.10); Red Cell Dist. Width 16.5 % (11.5-14.5); White Blood Cell Count 5.8 10^3/uL (4.8-10.8)
[2023-10-01 06:00] VITALS: BMI 25.6
[2023-10-01 06:21] LABS: ALT (SGPT) 22 U/L (0-50); AST (SGOT) 24 U/L (17-59); Albumin 3.4 g/dl (3.5-5.0); Alkaline Phosphatase 64 U/L (38-126); Blood Urea Nitrogen 15 mg/dl (9-20); Calcium 8.7 mg/dl (8.4-10.2); Carbon Dioxide 26 mmol/L (22-30); Chloride 105 mmol/L (98-107); Direct Bilirubin 0.2 mg/dl (0.0-0.4); Estimated Creatinine Clearance 48 ml/min; Glucose 95 mg/dl (70-99); Potassium 3.8 mmol/L (3.5-5.1); Sodium 136 mmol/L (135-145); Total Bilirubin 0.8 mg/dl (0.2-1.3); eGFR > 60.00
[2023-10-01] MEDS: ASPIR LOW (ENTERIC COATED) 81 MG PO (07:41)
[2023-10-01] MEDS: ZETIA 10 MG PO (07:41)
[2023-10-01] MEDS: ARICEPT 5 MG PO (07:41)
[2023-10-01] MEDS: PEPCID 20 MG PO (07:41)
[2023-10-01 07:43] VITALS: BP 138/72
--- NOTE | 2023-10-01 08:51 | W.PN.GI.CBS2 ---
Addendum entered and electronically signed by Eileen Preciado DO 10/01/23 10:37:
Patient seen and examined independently of COURTNEY. I agree with her note with my additions below:
Michael is an 78yoM with dementia and multiple CBD stones in the past requiring multiple ERCPs to clear who did not undergo cholecystectomy. He's back with abdominal pain (RLQ) and diarrhea. His LFTs are normal. He stopped having diarrhea (no stools
have been collected). His RLQ pain is present with palpation but he is soft and his WBC has normalized. He has no RUQ pain. His LFTs again are normal.
His imaging shows air in the GB showing the cystic duct is patent.
Patient ate this morning and is to undergo an MRI this afternoon.
He is with his who is concerned he is complaining of headache. He is on migraine meds.
She wants to take him home soon since his confusion is worsening inpatient.
PLAN: MRI then home
collect stools if he has any
outpatient follow up with gen surgery to review MRI
Could stop the antibiotics as more likely viral in nature vs complete a 7day course
Original Note:
Today's Communication / Plan
-
some limited exam but still with some RLQ pain on exam no vomiting
stool studies pending to be sent - 09/29 brown loose stool
for MRI abdomen nursing to call for timing as ate breakfast this am
cont low residue diet as tolerated
appreciate surgical eval -- awaiting MRI with possible OP evaluation for serafin
WBC, LFT's remains normal
updated family at bedside
Assessment / Plan
-
78-year-old male with past medical history of CAD, CVA, hypertension, hyperlipidemia, hypothyroidism with Alzheimer's and dementia presents to the emergency room with reports of abdominal pain. Patient is a poor historian and cannot give any
significant past medical history. Per emergency room records his states that he has had decreased appetite and right-sided abdominal pain. As well as general unwell feeling. Labs on admission WBC 11.5 down from 12.7, hemoglobin 11.4,
hematocrit 35.9, platelets 234, sodium 134, potassium 4.2, chloride 103, CO2 24, BUN 18, creatinine 1.1, glucose 98, total bilirubin 1.0, AST 30, ALT 21, alk phos 74, UA negative.
09/28 CT AP with IV contrast
1. Moderate wall thickening and submucosal edema involving distal ileal small bowel loops in the lower abdomen and pelvis (including the terminal ileum) in the cecum and ascending colon suggesting an ACUTE ENTEROCOLITIS (probably infectious and
less likely inflammatory or ischemic in etiology).
2. Mild to moderate gallbladder wall thickening and edema which appears new from 05/18/2023, but no evidence for cystic duct obstruction given the presence of air in the gallbladder lumen.
3. Severe pneumobilia in the left lobe of the liver consistent with a previous biliary sphincterotomy.
4. Mild hepatomegaly.
5. Severe diverticulosis in the distal descending and sigmoid colon.
6. Severely enlarged prostate gland.
7. Moderate diffuse urinary bladder wall thickening and trabeculation which is likely secondary to chronic urinary bladder outlet obstruction (possible superimposed acute cystitis).
8. Fusiform infrarenal abdominal aortic aneurysm (2.8 cm AP dimension).
9. Severe calcific atherosclerotic plaque in the abdominal aorta, iliac, and femoral arteries.
10. Multiple nonobstructing left intrarenal calculi.
11. Moderate number of bilateral renal cyst
Impression:
Leukocytosis
Reports of loose stool
Enterocolitis seen on imaging
Reports of abdominal pain, none currently-> gallbladder wall thickening and edema with normal LFTs
History of ERCP with sphincterotomy stone extractions x 2 (12/2022 and 02/2023)
recent renal stone with fever 2022
Alzheimer's disease with worsening status after anesthesia last fall
Plan:
some limited exam but still with some RLQ pain on exam no vomiting
stool studies pending to be sent - 09/29 brown loose stool
for MRI abdomen nursing to call for timing as ate breakfast this am
cont low residue diet as tolerated
appreciate surgical eval -- awaiting MRI with possible OP evaluation for serafin
WBC, LFT's remains normal
Subjective
Subjective
Date of Service: October 01, 2023
4/8 brown loose stool tolerating low residue diet still with some RLQ
Objective
Data Reviewed
Laboratory Data:
Laboratory Results
10/01/23 05:38
10/01/23 05:38
Laboratory Results
Total Bilirubin 0.8 mg/dl (0.2-1.3) 10/01/23 05:38
AST 24 U/L (17-59) 10/01/23 05:38
ALT 22 U/L (0-50) 10/01/23 05:38
Alkaline Phosphatase 64 U/L (38-126) 10/01/23 05:38
Lipase 78 U/L (23-300) 09/30/23 05:26
Vital Signs and I&O:
Vital Signs
Temp Pulse Resp BP Pulse Ox
98.7 F 64 17 138/72 97
10/01/23 07:43 10/01/23 07:43 10/01/23 07:43 10/01/23 07:43 10/01/23 07:43
I&O
09/30/23 10/01/23 10/02/23
06:59 06:59 06:59
Intake Total 1380 / 1380
Balance 1380 / 1380
Physical Exam
Physical Exam
HEENT: Anicteric and Moist mucous membranes
Cardiology: Normal Sinus Rhythm
Pulmonary: Clear
GI: Soft, Non Distended and Tender (RLQ- RMQ)
Extremities: No Edema
Neuro: Other (forgetful but awake minimal verbal in exam )
--- NOTE | 2023-10-01 09:03 | W.PN.SURGUPD ---
Surgical Update
Surgical Update
AVSS, WBC normalized. No reports of worsening abdominal pain. Tolerating LRD.
Prior US without comment on stones yet found to have choledocholithiasis on ERCP x2 (reports reviewed). Current CT imaging reviewed. Cystic duct appears open on CT as air within lumen of GB (not with wall or concern for emphysematous GB).
-- No plans for surgery at this time, awaiting MRI results
-- Outpatient follow-up pending above results
-- Will continue to follow along
--- NOTE | 2023-10-01 09:17 | W.PN.HOSP.TC ---
Addendum entered and electronically signed by Salvador Graham MD 10/01/23 21:05:
Attending Addendum-
I saw and evaluated the patient. I reviewed the resident�s note and agree with findings and plan as documented in the resident�s note. patient is poor historian due to dementia. Seen with present. Denies headache but states that he has
one. Currently patient appears comfortable. Wants to go home. denies abd pain N/V or diarrhea Full 12 point ROS reviewed and negative except as documented- limited by dementia- exam: gen nad heart RRR lungs clear abd soft NT ND LE no edema Neuro AAO
x 1 Plan:
# Acute Enterocolitis- resolving cont zosyn for now, would dc on short course abx (7 days total) repeat CBC in am appreciate GI and surg input was going to be dced but MRI done late- f/u results
# Advanced Dementia- cont meds watch for delirium
# HTN- cont home meds
# Hypothyroidism- cont meds
# CAD s/p CABG- cont meds
# GERD- cont meds
# Migraine- cont meds
# Depression- cont meds
# HLD - cont meds
Dispo- DC home in am
Time spent coordinating care, review of plan of care with resident, review of records, med rec, consults, notes, labs, rads, d/w nursing � 56 mins
Original Note:
Today's Communication/Plan
-
Pending MRI/MRCP
Assessment / Plan
Assessment / Plan
78-year-old male with past medical history of hypertension, hyperlipidemia, hypothyroidism, Alzheimer's dementia, CAD, choledocholithiasis s/p ERCP in 2022 presents to the ER with right upper quadrant pain and loose stools and nausea.
Imaging
CT abdomen pelvis 09/29/2023-
1. Moderate wall thickening and submucosal edema involving distal ileal small bowel loops in the lower abdomen and pelvis (including the terminal ileum) in the cecum and ascending colon suggesting an ACUTE ENTEROCOLITIS (probably infectious and
less likely inflammatory or ischemic in etiology).
2. Mild to moderate gallbladder wall thickening and edema which appears new from 05/18/2023, but no evidence for cystic duct obstruction given the presence of air in the gallbladder lumen.
3. Severe pneumobilia in the left lobe of the liver consistent with a previous biliary sphincterotomy.
4. Mild hepatomegaly.
5. Severe diverticulosis in the distal descending and sigmoid colon.
6. Severely enlarged prostate gland.
7. Moderate diffuse urinary bladder wall thickening and trabeculation which is likely secondary to chronic urinary bladder outlet obstruction (possible superimposed acute cystitis).
8. Fusiform infrarenal abdominal aortic aneurysm (2.8 cm AP dimension).
9. Severe calcific atherosclerotic plaque in the abdominal aorta, iliac, and femoral arteries.
10. Multiple nonobstructing left intrarenal calculi.
11. Moderate number of bilateral renal cysts.
Conditions prior to admission
Alzheimer's dementia
Essential hypertension
Hyperlipidemia
Hypothyroidism
CABG
History of stroke
Migraine
Choledocholithiasis
S/p right renal stone extraction after laser lithotripsy, 07/04/2023
Impression/plan
#Right upper quadrant abdominal pain
Acute onset since 3 days, associated with loose stools, nausea
No fever/chills
History of choledocholithiasis
LFTs normal
Lipase normal
Leukocytosis trending down, WBC 5.8
CT revealed evidence of acute enterocolitis
Started on ceftriaxone plus Flagyl, transition to empiric Zosyn
Today is day 3 of antibiotics
Transition to per oral Augmentin on discharge tomorrow, for 2 days-total 5 day course antibiotics
Stool cultures, norovirus PCR pending
GI consult
Analgesia, antiemetics as required
Trend LFTs, WBC
Surgery consult�as per surgery gallstones unlikely, recommended MRCP
MRI/MRCP pending
CT evidence of moderate gallbladder wall thickening and edema
Outpatient follow-up to discuss elective cholecystectomy if MRI shows any stones
Possible HIDA pending MRI findings
Diet as per GI-advance diet as tolerated, tolerating low residue diet well
Had a bowel movement yesterday with very minimal loose brown stools.
# Essential hypertension
Patient on losartan 50 mg per oral
Blood pressure�162/73
Nifedipine extended release 30 mg per oral added
Monitor
# History of renal calculi
S/p laser lithotripsy of right renal calculi and stone extraction�07/04/[address] evidence of bilateral renal calculi and renal cysts
No evidence of UTI from urine analysis
# Alzheimer's dementia
Continue Aricept
Continue Namenda
# Hypothyroidism
Continue levothyroxine
#Hyperlipidemia
Continue Zetia
# History of CAD/CABG
Continue aspirin
#DVT prophylaxis SCD
Anticipated Discharge: Within 24 hours
Subjective/Interval History
-
Date of Service: October 01, 2023
Patient's was at bedside. She stated, the patient has been having headache since the morning today. She is concerned that it might be a migraine headache. Patient does not have any photophobia, phonophobia, nausea, vomiting.
Patient had a bowel movement yesterday, very minimal loose brown stools. He is tolerating low residue diet.
Objective Data
-
Labs:
Laboratory Results
10/01/23
05:38
WBC 5.8
Hgb 10.8 L
Hct 33.6 L
Plt Count 203
Sodium 136
Potassium 3.8
Chloride 105
Carbon Dioxide 26
BUN 15
Creatinine 1.2
Glucose 95
Calcium 8.7
Total Bilirubin 0.8
AST 24
ALT 22
Alkaline Phosphatase 64
Vital Signs:
Vital Signs
Temp Pulse Resp BP Pulse Ox
98.7 F 64 17 138/72 97
10/01/23 07:43 10/01/23 07:43 10/01/23 07:43 10/01/23 07:43 10/01/23 07:43
I&O
09/30/23 10/01/23 10/02/23
06:59 06:59 06:59
Intake Total 1380 / 1380
Balance 1380 / 1380
Review of Systems
-
All other systems: Reviewed and negative (Except as mentioned above)
Physical Exam
-
General: Well Developed and Well Nourished
HEENT: Normocephalic and Atraumatic
Respiratory: Clear to Auscultation
Cardiac: Regular Rhythm and S1/S2
GI: Soft, Nontender, Nondistended and Normal Bowel Sounds
Neuro: Awake and Alert
[2023-10-01] MEDS: TYLENOL 650 MG PO (10:03)
--- NOTE | 2023-10-01 10:37 | W.PN.UPDATE ---
Update Note
Progress Note Update
for billing purposes
[2023-10-01] MEDS: NAMENDA 10 MG PO ×2 (11:53→21:07)
[2023-10-01 15:27] VITALS: BP 161/77
[2023-10-01] MEDS: PROCARDIA XL (EXTENDED RELEASE) 30 MG PO (21:06)
[2023-10-01] MEDS: PAXIL 10 MG PO (21:07)
[2023-10-01] MEDS: COZAAR 50 MG PO (21:10)
[2023-10-01 23:45] VITALS: BP 147/62
[2023-10-02] MEDS: ZOSYN 50 IV ×3 (02:40→13:01)
[2023-10-02] MEDS: FLUSH (NSS) 1 FLUSH IV (02:41)
[2023-10-02 06:00] VITALS: BMI 25.6
[2023-10-02] MEDS: SYNTHROID 75 MCG PO (06:23)
[2023-10-02 07:38] VITALS: BP 150/71
[2023-10-02] MEDS: ZETIA 10 MG PO (08:15)
[2023-10-02] MEDS: ASPIR LOW (ENTERIC COATED) 81 MG PO (08:15)
[2023-10-02] MEDS: ARICEPT 5 MG PO (08:15)
[2023-10-02] MEDS: PEPCID 20 MG PO (08:15)
--- NOTE | 2023-10-02 08:18 | W.PN.HOSP.TC ---
Addendum entered and electronically signed by Héctor Huerta MD 10/02/23 16:06:
Patient seen and examined
Discussed with resident
Discussed with gastroenterology and patient's at the bedside
Impression/plan:
78 years old man with prior history of choledocholithiasis requiring ERCP who presents with diffuse abdominal pain.
Workup including CT scan of the abdomen pelvis was consistent with enterocolitis
Given prior history, initially concern for recurrent choledocholithiasis and acute cholecystitis
Symptomatically improved while on IV antibiotics and initially bowel rest
Afebrile
Normal white count
Normal LFTs
Additional workup with MRI of the abdomen confirming no evidence of acute cholecystitis, cystic duct sludge with no choledocholithiasis.
Tolerates diet
Transition to oral antibiotics to complete additional 4-day course of Augmentin as outpatient
Stable for discharge.
Original Note:
Today's Communication/Plan
-
Discharge today
Transition to per oral antibiotics�Augmentin for 3 more days, total course of 7 days antibiotics.
Follow-up with GI, surgery as needed.
Assessment / Plan
Assessment / Plan
78-year-old male with past medical history of hypertension, hyperlipidemia, hypothyroidism, Alzheimer's dementia, CAD, choledocholithiasis s/p ERCP in 2022 presents to the ER with right upper quadrant pain and loose stools and nausea.
Imaging
CT abdomen pelvis 09/29/2023-
1. Moderate wall thickening and submucosal edema involving distal ileal small bowel loops in the lower abdomen and pelvis (including the terminal ileum) in the cecum and ascending colon suggesting an ACUTE ENTEROCOLITIS (probably infectious and
less likely inflammatory or ischemic in etiology).
2. Mild to moderate gallbladder wall thickening and edema which appears new from 05/18/2023, but no evidence for cystic duct obstruction given the presence of air in the gallbladder lumen.
3. Severe pneumobilia in the left lobe of the liver consistent with a previous biliary sphincterotomy.
4. Mild hepatomegaly.
5. Severe diverticulosis in the distal descending and sigmoid colon.
6. Severely enlarged prostate gland.
7. Moderate diffuse urinary bladder wall thickening and trabeculation which is likely secondary to chronic urinary bladder outlet obstruction (possible superimposed acute cystitis).
8. Fusiform infrarenal abdominal aortic aneurysm (2.8 cm AP dimension).
9. Severe calcific atherosclerotic plaque in the abdominal aorta, iliac, and femoral arteries.
10. Multiple nonobstructing left intrarenal calculi.
11. Moderate number of bilateral renal cysts.
MRI abdomen 10/02/2023:
Layering sludge within the gallbladder and common bile duct without discrete stones identified. No convincing evidence for acute cholecystitis.
Conditions prior to admission
Alzheimer's dementia
Essential hypertension
Hyperlipidemia
Hypothyroidism
CABG
History of stroke
Migraine
Choledocholithiasis
S/p right renal stone extraction after laser lithotripsy, 07/04/2023
Impression/plan
#Right upper quadrant abdominal pain
Acute onset since 3 days, associated with loose stools, nausea
No fever/chills
History of choledocholithiasis
LFTs normal
Lipase normal
Leukocytosis trending down, WBC 5.8
CT revealed evidence of acute enterocolitis
Started on ceftriaxone plus Flagyl, transition to empiric Zosyn
Today is day 4 of antibiotics
Transition to per oral Augmentin on discharge today, for 3 more days-total 7 day course antibiotics
GI consult
Analgesia, antiemetics as required
Trend LFTs, WBC
Surgery consult�as per surgery gallstones unlikely, recommended MRI
MRI-no evidence of gallstones,
CT evidence of moderate gallbladder wall thickening and edema
Outpatient follow-up to discuss elective cholecystectomy if MRI shows any stones
Diet as per GI-advance diet as tolerated,He does not need a repeat ERCP in the setting of no right upper quadrant pain, normal LFTs. He is status post sphincterotomy which hopefully will protect him from getting obstructed.
# Essential hypertension
Patient on losartan 50 mg per oral
Nifedipine extended release 30 mg per oral added
Monitor
# History of renal calculi
S/p laser lithotripsy of right renal calculi and stone extraction�07/04/[address] evidence of bilateral renal calculi and renal cysts
No evidence of UTI from urine analysis
# Alzheimer's dementia
Continue Aricept
Continue Namenda
# Hypothyroidism
Continue levothyroxine
#Hyperlipidemia
Continue Zetia
# History of CAD/CABG
Continue aspirin
Anticipated Discharge: Today
Subjective/Interval History
-
Date of Service: October 02, 2023
Patient states he does not have any abdominal pain. His headache has gotten better since yesterday.
Objective Data
-
Vital Signs:
Vital Signs
Temp Pulse Resp BP Pulse Ox
98.5 F 65 16 150/71 95
10/02/23 07:38 10/02/23 07:38 10/02/23 07:38 10/02/23 07:38 10/02/23 07:38
I&O
10/01/23 10/02/23 10/03/23
06:59 06:59 06:59
Intake Total 1380 / 1380 520 / 520
Balance 1380 / 1380 520 / 520
Review of Systems
-
All other systems: Reviewed and negative (Except as mentioned above)
Physical Exam
-
General: Well Developed and Well Nourished
HEENT: Normocephalic and Atraumatic
Respiratory: Clear to Auscultation
Cardiac: Regular Rhythm and S1/S2
GI: Soft, Nontender, Nondistended and Normal Bowel Sounds
Musculoskeletal: No Clubbing, No Cyanosis and No Edema
Skin: Warm and Dry
Neuro: Awake and Alert
Psych: Calm
--- NOTE | 2023-10-02 09:29 | W.PN.UPDATE ---
Update Note
Progress Note Update
MRI reviewed. No signs of ACC. Sludge in the CBD is noted. Will defer to GI on need for ERCP.
If he ultimately would like to discuss [facility] inpatient, please call [facility].
--- NOTE | 2023-10-02 11:33 | W.PN.GI.CBS2 ---
Addendum entered and electronically signed by Eileen Preciado DO 10/02/23 14:01:
Patient seen and examine independently of [facility]. I agree with her note with additions below
Patient's diarrhea has improved. He was able to get to the bathroom in the stool still loose but much less frequent and more controllable. He denies any significant abdominal pain.
We reviewed his MRI showing sludge in the common bile duct and gallbladder.
He has no right upper quadrant pain, LFTs are normal
He is not a great surgical candidate in terms of anesthesia
He does not need a repeat ERCP in the setting of no right upper quadrant pain, normal LFTs. He is status post sphincterotomy which hopefully will protect him from getting obstructed. His is aware if he has any significant epigastric or right
upper quadrant pain, fevers chills he needs to come back to the hospital.
I also told her if he has intermittent symptoms to follow-up with general surgery to discuss cholecystectomy as that is the normal management for these types of findings, again however he is not a great surgical candidate and we will see how he does
clinically. I did discuss with them ursodiol but the evidence is not great that it works and will be adding a good amount of medications to his already long medication list. Will hold off on that.
She is understanding. Also the primary team was in the room during this discussion. Patient is to be discharged.
Original Note:
Today's Communication / Plan
-
Pending stool cultures. C. difficile negative. Norovirus negative. Diarrhea is improving per . Low residue low lactose diet. Follow-up outpatient with general surgery. Recommend low-fat diet as well. Can add fiber supplement for bulking.
No further GI recommendations at this time. Please call back for questions or concerns.
Assessment / Plan
-
The patient is an 78-year-old male with past medical history significant for CAD, CVA, hypertension, hyperlipidemia, hypothyroidism with Alzheimer's and dementia presents to the emergency room with reports of abdominal pain. He does have dementia
therefore history was limited on admission and his assisted with HPI. Per her he has had decreased appetite and right-sided abdominal pain. As well as general unwell feeling. Labs on admission WBC 11.5 down from 12.7, hemoglobin 11.4,
hematocrit 35.9, platelets 234, sodium 134, potassium 4.2, chloride 103, CO2 24, BUN 18, creatinine 1.1, glucose 98, total bilirubin 1.0, AST 30, ALT 21, alk phos 74, UA negative. He was also having diarrhea with urgency at home which is not normal
for him.
09/28 CT AP with IV contrast
1. Moderate wall thickening and submucosal edema involving distal ileal small bowel loops in the lower abdomen and pelvis (including the terminal ileum) in the cecum and ascending colon suggesting an ACUTE ENTEROCOLITIS (probably infectious and
less likely inflammatory or ischemic in etiology).
2. Mild to moderate gallbladder wall thickening and edema which appears new from 05/18/2023, but no evidence for cystic duct obstruction given the presence of air in the gallbladder lumen.
3. Severe pneumobilia in the left lobe of the liver consistent with a previous biliary sphincterotomy.
4. Mild hepatomegaly.
5. Severe diverticulosis in the distal descending and sigmoid colon.
6. Severely enlarged prostate gland.
7. Moderate diffuse urinary bladder wall thickening and trabeculation which is likely secondary to chronic urinary bladder outlet obstruction (possible superimposed acute cystitis).
8. Fusiform infrarenal abdominal aortic aneurysm (2.8 cm AP dimension).
9. Severe calcific atherosclerotic plaque in the abdominal aorta, iliac, and femoral arteries.
10. Multiple nonobstructing left intrarenal calculi.
11. Moderate number of bilateral renal cyst
Problem list:
-Leukocytosis
-Reports of loose stool
-Enterocolitis seen on imaging
-right sided abdominal pain, none currently-> gallbladder wall thickening and edema with normal LFTs
-History of ERCP with sphincterotomy stone extractions x 2 (12/2022 and 02/2023)
-recent renal stone with fever 2022
-Alzheimer's disease with worsening status after anesthesia last fall
Recommendations:
-Etiology of right lower quadrant pain likely secondary to gastroenteritis. With MRI only showing somewhat gallbladder sludge and sludge in the CBD without any choledocholithiasis. His LFTs have remained normal.
---some acute diarrhea which is improving. otherwise no pain, nausea, or vomiting.
-Agree with stool studies. Negative for C. difficile and norovirus. Stool culture pending.
-Advised on a low residue low lactose diet and can advance once his symptoms are improving
-I did also recommend adding in a fiber supplement to assist with bulking since his C. difficile is negative.
-Would limit use of Imodium as this can result in constipation. Discussed with his .
-I did recommend also low-fat diet as well given his gallbladder history
-antibiotics as per hospitalist.
-He should follow-up outpatient with surgery to discuss further management of MRI findings, but is nonoperative at this time per surgery.
-He can follow-up outpatient with GI for further evaluation as needed if he has ongoing diarrhea
-No further GI recommendations at this time. Please call for questions or concerns. If diarrhea is improved and no recurrent pain, likely okay for GI standpoint for discharge.
Subjective
Subjective
Date of Service: October 02, 2023
The patient was seen and examined at the bedside. He denies any complaints. His notes that he did have some diarrhea this morning without evidence of blood. She notes that his urgency is less and was able to tell her when he needs to have a
bowel movement. He is otherwise only had small stains of stool in his diapers. Stool studies were sent and are pending this morning. I did review his MRI with his which did show some sludge in the gallbladder and CBD otherwise no stones.
His LFTs have been normal
Objective
Data Reviewed
Laboratory Data:
Laboratory Results
10/01/23 05:38
10/01/23 05:38
Laboratory Results
Total Bilirubin 0.8 mg/dl (0.2-1.3) 10/01/23 05:38
AST 24 U/L (17-59) 10/01/23 05:38
ALT 22 U/L (0-50) 10/01/23 05:38
Alkaline Phosphatase 64 U/L (38-126) 10/01/23 05:38
Lipase 78 U/L (23-300) 09/30/23 05:26
Vital Signs and I&O:
Vital Signs
Temp Pulse Resp BP Pulse Ox
98.5 F 65 16 150/71 95
10/02/23 07:38 10/02/23 07:38 10/02/23 07:38 10/02/23 07:38 10/02/23 07:38
I&O
10/01/23 10/02/23 10/03/23
06:59 06:59 06:59
Intake Total 1380 / 1380 520 / 520
Balance 1380 / 1380 520 / 520
Physical Exam
Physical Exam
HEENT: Anicteric
Cardiology: S1 and S2 (Regular rate/rhythm)
Pulmonary: Clear
GI: Soft, Non Distended, Non Tender and Normal Bowel Sounds
Extremities: No Edema
[2023-10-02] MEDS: NAMENDA 10 MG PO (11:54)
--- NOTE | 2023-10-02 12:37 | CM ---
CM following for d/c planning
Spoke with pt and his at bedside
Pts reports pt ambulates well, does not feel he would need home PT
Discussed IMM
When d/c she will take him home
Plan - anticipate home no needs
[2023-10-02 13:22] VITALS: BP 153/75; PULSE 68; O2SAT 96
--- NOTE | 2023-10-02 14:01 | W.PN.UPDATE ---
Update Note
Progress Note Update
For billing purposes
[2023-10-02 14:40] VITALS: BP 140/60; PULSE 63; O2SAT 96
--- NOTE | 2023-10-02 14:51 | PTOTSP ---
pt currently requires supervision to no assistance to complete simple ADLs, functional transfers, ambulation. pt ready to return home with spouse assistance. no acute OT needs identified at this time, will sign off.
--- NOTE | 2023-10-02 15:01 | W.DS.TRANS ---
DC Summary - [employer]
-
Discharge Instructions:
Instructions:
Stand-Alone Forms:
Changes to Home Medications: No
Discharge Medications:
DC Medications w/original date entered in [facility]
coenzyme Q10 300 mg capsule (Co Q-10) 300 mg PO HS Supplement 06/28/17
famotidine 20 mg tablet (Pepcid AC) 20 mg PO BID Gastrointestinal issue 06/28/17
erenumab-aooe 140 mg/mL subcutaneous auto-injector (Aimovig Autoinjector) 140 mg SC QMONTH migraine 02/15/22
losartan 50 mg tablet 50 mg PO HS Blood pressure 02/15/22
ubrogepant 50 mg tablet (Ubrelvy) 50 mg PO PRN PRN migraine 02/15/22
levothyroxine 75 mcg tablet 75 mcg PO DAILY Thyroid 12/29/22
paroxetine HCl 10 mg tablet (Paxil) 10 mg PO HS 05/19/23
donepezil 5 mg tablet 5 mg PO DAILY 06/18/23
hvncgwbhodzc-gpq-etjpl acid-vit K-lycop 400 mcg-20 mcg-370 mcg tablet (Men's 50 Plus Multivitamin) 1 tab PO NOON 06/18/23
nifedipine 30 mg tablet,extended release 30 mg PO HS 06/18/23
aspirin 81 mg tablet,delayed release 81 mg PO DAILY 09/29/23
ezetimibe 10 mg tablet (Zetia) 10 mg PO DAILY 09/29/23
ibuprofen 600 mg tablet 600 mg PO Q6H PRN mild pain 09/29/23
memantine 10 mg tablet 10 mg PO BID@1200,2200 09/29/23
Home Medication Changes
Augmentin 500/ 125, twice daily, for 3 days
Pending Results: No
[2023-10-02 15:30] VITALS: BP 166/66
== END 2023-10-02 17:23 | disposition home or self-care (01) | DRG 392 ==
LOC: 3 WEST ACU 20:28
PROVIDERS: Nurse Practitioner; Physician Assistant; ADMITTING PHYSICIAN Internal Medicine; ATTENDING PHYSICIAN Internal Medicine; CONSULT PHYSICIAN Internal Medicine Gastroenterology; EMERGENCY PHYSICIAN Emergency Medicine; FAMILY PHYSICIAN Family Medicine; OTHER PHYSICIAN Surgery
DX: A09 Infectious gastroenteritis and colitis, unspecified (principal); K57.30 Diverticulosis of large intestine without perforation or abscess without bleeding; G30.9 Alzheimer's disease, unspecified; I10 Essential (primary) hypertension; E03.9 Hypothyroidism, unspecified; I25.10 Atherosclerotic heart disease of native coronary artery without angina pectoris; Z95.1 Presence of aortocoronary bypass graft; K21.9 Gastro-esophageal reflux disease without esophagitis; G43.909 Migraine, unspecified, not intractable, without status migrainosus; F32.A Depression, unspecified; E78.00 Pure hypercholesterolemia, unspecified
CPT/HCPCS: 74177; 74183; 80053; 81003; 82248; 83690; 85025; 85027; 87045; 87046; 87324; 87427; 87449; 87798; 97162; 97165; 99285; A9575; Q9967

== ENCOUNTER → 2024-05-25 14:24 | Outpatient (REF) | payer OTHER, SELFPAY | LOC: HWRAD 14:24 | PROVIDERS: ATTENDING PHYSICIAN Nurse Practitioner Family | DX: R45.1 Restlessness and agitation (principal); R09.89 Other specified symptoms and signs involving the circulatory and respiratory systems | CPT/HCPCS: 71046 ==

== ENCOUNTER → 2024-11-24 11:50 | Outpatient (REF) | payer OTHER, SELFPAY | LOC: HWRAD 11:50 | PROVIDERS: ATTENDING PHYSICIAN Family Medicine | DX: M54.50 Low back pain, unspecified (principal); M54.9 Dorsalgia, unspecified | CPT/HCPCS: 72072; 72110 ==

== ENCOUNTER → 2024-12-07 12:21 | Outpatient (REF) | payer OTHER, SELFPAY | LOC: RAD 12:21 | PROVIDERS: ATTENDING PHYSICIAN Specialist; FAMILY PHYSICIAN Family Medicine | DX: N20.0 Calculus of kidney (principal) | CPT/HCPCS: 74018 ==

== ENCOUNTER 2024-12-29 14:32 | Inpatient (IN) | payer OTHER, SELFPAY ==
[2024-12-29] VITALS (11 sets, daily range): BP systolic 84–146; BP diastolic 41–80; BMI 26.4
[2024-12-29 10:57] LABS: Hematocrit 41.8 % (39.0-52.0); Hemoglobin 13.9 g/dL (13.0-18.0); Mean Corp Hgb Conc. 33.3 g/dL (33.0-37.0); Mean Corpuscular Volume 89.1 fL (80.0-94.0); Platelet Count 150 10^3/uL (130-400); Red Cell Dist. Width 14.8 % (11.5-14.5)
[2024-12-29 11:11] LABS: ALT (SGPT) 39 U/L (0-50); AST (SGOT) 30 U/L (17-59); Albumin 4.1 g/dl (3.5-5.0); Alkaline Phosphatase 89 U/L (38-126); Blood Urea Nitrogen 29 mg/dl (9-20); Calcium 9.0 mg/dl (8.4-10.2); Carbon Dioxide 23 mmol/L (22-30); Chloride 105 mmol/L (98-107); Estimated Creatinine Clearance -4 ml/min; Glucose 116 mg/dl (70-99); Lipase 32 U/L (23-300); Potassium 5.0 mmol/L (3.5-5.1); Sodium 138 mmol/L (135-145); Total Protein 6.6 g/dl (6.3-8.2); eGFR 37.35
[2024-12-29] MEDS: NSS 1000 IV (11:15)
[2024-12-29] MEDS: ZOFRAN 4 MG IV (11:16)
[2024-12-29 11:57] LABS: Troponin I < 0.012 ng/ml
[2024-12-29 12:07] LABS: Absolute Neutrophils -Man Diff 25.8 10^3/uL (1.4-6.5); Total Cells Counted 100
[2024-12-29 12:08] LABS: Normal RBC Morphology Yes; Platelets Checked Yes
--- NOTE | 2024-12-29 12:45 | ED.GENMED ---
History of Present Illness
General
Chief Complaint: Abdominal Symptoms
Source: significant other
Exam Limitations: dementia
Time Seen by Provider: 12/29/24 10:47
Nursing documentation reviewed up to this point in time: agreed with
History of Present Illness
History of Present Illness:
pt is a 79 y/o M
from home
h/o alzheimers
is primary historian who is here with him
CABG age 38
h/o choledocholithiasis, kidney stone, sepsis
here with gradual decline in mental status x 3=4 days, more sleeping, more confused
nausea yetserday with dry heaving, no vomiting
tolerated soup last night
slepeing more than usual
this morning just gnerally weak
confused about following simple directions
no diarrhea, cough, sore throat, rash, trouble breathing, wounds
Past History
Past History
ED Past Medical History: CAD, HTN, Hypercholesterolemia and Other (vertigo)
ED Past Surgical History: Cardiac (bypass 1987)
PSI?: No
Social History
Tobacco: Non-smoker
Alcohol: None
Drug: None
Personal:
Living: with family
Review of Systems
Review of Systems
Allergies reviewed?: Yes
All Other Systems: Not applicable
Phy Exam
Physical Exam
Physical Exam:
GENERAL: Alert , in no apparent distress, gen weak; but awake and alert
EYE: pupils equal and reactive
NECK: Supple
ENT: o/p clr, dry
CARDIAC: Regular rate and rhythm .2+ murmur
LUNGS: Clear breath sounds bilaterally, no acute respiratory distress, no wheezes/rales/rhonchi
ABDOMEN: Soft, without focal tenderness, no r/g, no cvat, normal bowel sounds
NEUROLOGICAL: Alert and oriented x 1, no focal neuro deficits; generally confused
SKIN: Warm and dry, skin intact.
MUSCULOSKELETAL: No edema, well perfused. neg murtaza's sign
PSYCH: Normal and appropriate interaction.
Course
Orders/Labs/Results
Orders:
Orders
12/29/24 10:43
Complete Blood Count/With Diff Urgent
Comprehensive Metabolic Panel Urgent
Lipase Urgent
Manual Differential Urgent
12/29/24 11:04
Straight cath- Treatment ONCE
12/29/24 11:05
Electrocardiogram (*1) Urgent
Reason for Study: Fatigue / Weakness
EKG- Treatment ONCE
0.9% Sodium Chloride 1000 ml [Nss] 1,000 ml IV BOLUS
Ondansetron Injectable [Zofran] 4 mg IV NOW STA
12/29/24 11:11
Blood Culture Q30M
JEANETTE Source: Blood/Venous
Specimen Description:
Blood Culture Q30M
JEANETTE Source: Blood/Venous
Specimen Description:
12/29/24 11:12
Lactic Acid Urgent
Troponin I Urgent
12/29/24 11:13
CT Abd/pel Without Iv Or Oral Urgent
Comment:
Reason For Exam: nausea, karen; eval stone
12/29/24 12:39
Piperacillin/Tazo 3.375 Gram [Zosyn] 3.375 gram in 50 ml IV NOW
12/29/24 12:42
CR Chest - 2 Views Urgent
Comment:
Reason For Exam: sepsis
12/29/24 12:47
0.9% Sodium Chloride 500 ml [Nss] 500 ml IV BOLUS
12/29/24 13:00
Urinalysis Reflex To Culture Urgent
Date Specimen was Collected: 12/29/24
Time Specimen was Collected: 12:48
Urine Microscopic Reflex Cult Urgent
Urine Culture Urgent
JEANETTE Source: U
Specimen Description:
Obtained by: Random
Date Specimen was Collected: 12/29/24
Time Specimen was Collected: 12:48
12/29/24 13:45
Admit/Transfer Patient As Directed
Co-Sign Provider:
Level of Care: Inpatient admission
Assign to:: Telemetry
Physician / Group: kathryn mack
Diagnosis: sepsis
Reason for Telemetry: Other
Other Reason for Telemetry: sepsis
Date to Stop Telemetry: 12/31/24
Time to Stop Telemetry: 11:00
Reason for Hospitalization: sepsis
Expected length of stay greater than two midnights?: Yes
ELOS- Estimated Length of Stay in days: 3
I certify the patient meets the requirements for IP care: Yes
12/29/24 13:46
PRN Pain Medication Management As Directed
May give lesser potent ordered pain med per pt: Yes
preference::
Protocol:: Medication orders for pain may be administered in a
manner that supports deferring to patient preference
when the pt is:
- Requesting an ordered lesser potent pain medication.
Least to most potent pain medications are defined
as: acetaminophen < NSAID < tramadol < opioids
(morphine, oxycodone, hydromorphone).
- Requesting a lesser dose of the same medication IF
ORDERED.
- Requesting a less intrusive route of administration
if both routes are prescribed by the provider (PO <
IV).
12/29/24 13:47
Code Status As Directed
Resuscitation Status: Full Code
12/31/24 11:00
DC Protocol for Telemetry ONCE
Abnormal Lab Results
12/29/24 12/29/24 12/29/24
10:43 11:12 13:00
WBC 26.7 H 10^3/uL
(4.8-10.8)
RBC 4.69 L 10^6/uL
(4.70-6.10)
RDW 14.8 H %
(11.5-14.5)
Abs Neuts (Manual) 25.8 H 10^3/uL
(1.4-6.5)
Segmented Neutrophils 82 H %
(42-75)
Band Neutrophils 15 H %
(0-3)
Lymphocytes (Manual) 1 L %
(20-51)
BUN 29 H mg/dl
(9-20)
Creatinine 1.8 H mg/dL
(0.7-1.3)
Glucose 116 H mg/dl
(70-99)
Lactic Acid 3.5 H mmol/L
(0.7-2.0)
Ur Occult Blood Reflex 3+ A
(Negative)
Urine Bilirubin 1+ A
(Negative)
Leukocyte Esterase Rfl 1+ A
(Negative)
Urine RBC 7-10 A /HPF
(0-2)
Urine Bacteria (Reflex) Few A
(Negative)
Urine Albumin (Reflex) 2+ A
(Neg - Trace)
12/29/24 10:43
12/29/24 10:43
Vital Signs
Initial and Last Documented VS:
Initial Vital Signs
Temp Pulse Resp BP Pulse Ox
37.1 C 75 17 84/41 95
12/29/24 10:14 12/29/24 10:14 12/29/24 10:14 12/29/24 10:14 12/29/24 10:14
Last Documented Vital Signs
Temp Pulse Resp BP Pulse Ox
37.1 C 77 17 118/52 95
12/29/24 10:14 12/29/24 13:00 12/29/24 13:00 12/29/24 13:00 12/29/24 13:00
MDM/Problems Addressed
Differential Diagnosis Includes:
sepsis, uti, kidney stone, choledocholithiasis, pna
MDM/Problems Addressed:
79 y/o M with h/o dementia
here with fatigue, lack of appetite, nauesa, dry heaving and more confusion than normal
no obvious source
afebrile
hypotensive
awake/alert but fatigued
no significnat tendnress
lungs clear
wbc 26, L shift, bandemia,
lactic 3.5
meeting criteria fo rsepsis
no source
needss straight cath
has KAREN likey prerenal
dry ct without obvious findings
lfts reassuring
will culture and cover with zosyn for now
sepsis fluids
cxr indep reviewed, no pna
*Pulse Oximetry
SaO2: 94
Oxygen Mode of Delivery: Room air
Patient hypoxic: no (95)
*Critical Care Note
Total Time (30-74mins, 75-104mins- exclusive of procedures): Not Applicable
ED Attending Note
-
Portions of this chart may have been created with voice recognition software.� Occasional wrong word or��sound alike� substitutions may have occurred due to the inherent limitations of voice recognition software.
Discharge Plan
Departure
Patient Disposition: Admit
Date of Disposition: 12/29/24
Time of Disposition: 13:11
Admit to: IMU
Presentation/result/management discussed w/ accepting MD/DO: Hospitalist
Condition: Fair
Covid-19: Not Applicable
Discharge Problem:
Sepsis
Interventions
Interventions:
*Risk Screen - Suicide Last Done: 12/29/24 10:16
*General Assessment Last Done: 12/29/24 10:16
*Neglect/Abuse Screening Last Done: 12/29/24 10:16
*ED COVID-19 Vaccine History Last Done: 12/29/24 10:16
DI-Nejqor-Zvekcvjtrp Assessment Last Done: 12/29/24 11:20
[2024-12-29 13:14] LABS: Urine Character Clear (Clear)
--- NOTE | 2024-12-29 13:16 | HPS.HSE ---
Family Physician
-
Family Physician: Sangita Joyce
Chief Complaint
-
confusion
weakness
History of Present Illness
79 y/o M from home h/o Alzheimer, dementia, choledocholithiasis, kidney stones presented with worsening confusion weakness for past one week. yesterday he was complaining of abdominal pain and was nauseous all day. he did not vomit. he had poor
appetite yesterday. today his was not able to get him up. denied fever, chills, chest pain, sob. denied dysuria or hematuria.
upon arrival he was in sepsis. initiated on Zosyn. admitting for further management.
Medical History
Past Medical History
Past Medical History: Reports Other
Additional Past Medical History:
Dementia
Alzheimer's
Hypertension
CVA
Coronary artery disease
Past Surgical History: Reports Other
Additional Past Surgical History:
Coronary artery bypass graft
Parathyroid surgery
Face rhizotomy
Lithotripsy
Social History
Tobacco: Former Smoker
Alcohol: None
Drug: None
Personal:
Living: With Family
Family History
Family History: Not pertinent
Allergies / Home Medications
Allergies reflects when Allergies were last updated in [facility].
Home Medications with original date entered in [facility]
Allergy/Medication List:
Allergies
Allergy/AdvReac Type Severity Reaction Status Date / Time
No Known Allergies Allergy Verified 12/29/24 10:16
Home Medications
famotidine 20 mg tablet (Pepcid AC) 20 mg PO BID Gastrointestinal issue 06/28/17
losartan 50 mg tablet 50 mg PO HS Blood pressure 02/15/22
levothyroxine 75 mcg tablet 75 mcg PO DAILY Thyroid 12/29/22
donepezil 5 mg tablet 5 mg PO DAILY 06/18/23
nifedipine 30 mg tablet,extended release 30 mg PO HS 06/18/23
ezetimibe 10 mg tablet (Zetia) 10 mg PO DAILY 09/29/23
memantine 10 mg tablet 10 mg PO BID 09/29/23
acetaminophen 325 mg tablet (Tylenol) 325 mg PO HSPRN PRN mild pain 12/29/24
aspirin 325 mg tablet 325 mg PO DAILY 12/29/24
docusate sodium 100 mg capsule (Colace) 100 mg PO Q48H 12/29/24
melatonin 5 mg tablet 5 mg PO HS 12/29/24
naproxen sodium 220 mg tablet (Aleve) 220 mg PO DAILYPRN PRN mild pain 12/29/24
quetiapine 25 mg tablet (Seroquel) 25 mg PO HS 12/29/24
sertraline 25 mg tablet 25 mg PO DAILY 12/29/24
tamsulosin 0.4 mg capsule (Flomax) 0.4 mg PO BID 12/29/24
Review of Systems
-
Constitutional: Reports No Symptoms
EENT: Reports No Symptoms
Respiratory: Reports No Symptoms
Cardiac: Reports No Symptoms
Abdomen/GI: Reports No Symptoms
: Reports No Symptoms
Musculoskeletal: Reports No Symptoms
Skin: Reports No Symptoms
Neurological: Reports Weakness
Endocrine: Reports No Symptoms
Hematologic/Lymphatic: Reports No Symptoms
Psych: Reports No Symptoms
Physical Exam
Vital Signs
Vital Signs
Temp Pulse Resp BP Pulse Ox
98.8 F 77 17 118/52 95
12/29/24 10:14 12/29/24 13:00 12/29/24 13:00 12/29/24 13:00 12/29/24 13:00
Physical Exam
General: Well Developed, Well Nourished and No Apparent Distress
HEENT: NormoCephalic, Moist mucous membranes and Atraumatic
Respiratory: Clear
Cardiac: S1/S2 and Regular Rhythm; No Murmur or Rub
GI: Soft, Non Tender, Non Distended and Normal Bowel Sounds; No Organomegaly
Rectal: Deferred by Provider
Musculoskeletal: No Clubbing, No Cyanosis and No Edema
Skin: No Rash
Neuro: Nonfocal/grossly intact
Psych: Confused
Laboratory Results
-
12/29/24 10:43
12/29/24 10:43
Laboratory Results
Lactic Acid 3.5 mmol/L (0.7-2.0) H 12/29/24 11:12
Total Bilirubin 1.2 mg/dl (0.2-1.3) 12/29/24 10:43
AST 30 U/L (17-59) 12/29/24 10:43
ALT 39 U/L (0-50) 12/29/24 10:43
Alkaline Phosphatase 89 U/L (38-126) 12/29/24 10:43
Troponin I < 0.012 ng/ml 12/29/24 11:12
Lipase 32 U/L (23-300) 12/29/24 10:43
Data Reviewed
-
CT Scan: Report Reviewed by me
Lab Data: Labs Reviewed by me
Impression/Plan
-
#Sepsis sepsis unclear cause
- IV Zosyn continued
- Blood culture sent from ER
-WBCs 26.7, Lactic 3.5
- UA pending
-chest x ray pending
-trend lactic and monitor wbc
-Tylenol prn for fever
-CT abdomen pelvis with the impression of Small bilateral nonobstructing renal calculi. No gross findings to suggest obstructive uropathy bilaterally.Small bilateral simple renal cysts and additional bilateral subcentimeter low-attenuation renal
lesions too small to characterize.Enlarged prostate gland. At least relative diffuse thickening of the wall the urinary bladder due to underdistention or bladder outlet obstruction. Less likely etiology would be cystitis.Distal colonic
diverticulosis. No intestinal obstruction or free air.Mild aneurysmal dilatation of the infrarenal abdominal aorta again seen at 2.8 cm.
#Acute kidney injury likely dehydration
- Creatinine 1.8
- Fluids continued
- Monitor BMP in a.m.
# Essential hypertension
-hold losartan and nifedipine
# History of renal calculi
S/p laser lithotripsy of right renal calculi and stone extraction�07/04/2023
# Alzheimer's dementia
-Continue Aricept
-Continue Seroquel and sertraline
#BPH
-Flomax
# Hypothyroidism
-Continue levothyroxine
#Hyperlipidemia
-Continue Zetia
#GERD
-PPI continued
# History of CAD/CABG
-Continue aspirin
#DVT prophylaxis
-heparin
#CODE status
-full code
--- NOTE | 2024-12-29 13:39 | W.PN.UPDATE ---
Update Note
Progress Note Update
I could not get any information from the patient due to Dementia
Information gathered by chart review and speaking with the ER staff.
This note serves as an addendum to the H&P by police booking officer CHARLOTTE Bess OLIVIA
HPI
79M with Dementia , HX choledocholithiasis, kidney stone, sepsis seen at ER:
- gradual decline in mental status last 3=4 days, more sleeping, more confused
- nausea yetserday with dry heaving
- no vomiting and tolerated soup last night
- generally weak
- confused about following simple directions
ROS
no diarrhea, cough, sore throat, rash, trouble breathing, wounds
PHX
Alzheimer's dementia
Essential hypertension
Hyperlipidemia
Hypothyroidism
CABG
History of stroke
Migraine
Choledocholithiasis
S/p right renal stone extraction after laser lithotripsy, 07/04/2023
Relevant VS:
Vital Signs
Temp Pulse Resp BP Pulse Ox
98.8 F 77 17 118/52 95
12/29/24 10:14 12/29/24 13:00 12/29/24 13:00 12/29/24 13:00 12/29/24 13:00
PE
Gen: no apparent distress, gen weak
HEENT: anicteric
Neck: supple
Lungs: CTA
Cor: RR No M
Abdomen: soft , NG
ASSISTANT IN NURSING:alert , awake and confused
MS: No edema
Psych: confused
Relevant data
Laboratory Tests
10/01/23 12/29/24 12/29/24
05:38 10:43 11:12
WBC 26.7 H
BUN 29 H
Creatinine 1.2 1.8 H
eGFR > 60.00 37.35
Troponin I < 0.012
CT Abd/pel Without Iv Or Oral
- Limited study as a result of numerous factors, as detailed above.
- Small bilateral nonobstructing renal calculi.
No gross findings to suggest obstructive uropathy bilaterally.
- Small bilateral simple renal cysts and additional bilateral subcentimeter low-attenuation renal lesions too small to characterize.
- Enlarged prostate gland. At least relative diffuse thickening of the wall the urinary bladder due to underdistention or bladder outlet obstruction. Less likely etiology would be cystitis.
- Distal colonic diverticulosis. No intestinal obstruction or free air.
- Mild aneurysmal dilatation of the infrarenal abdominal aorta again seen at 2.8 cm.
ASSESSMENT & PLAN
Clinical sepsis of uncertain source
- Hypotensive improved with 2L NS
- severe
- hi WCC , LA 3.5
- unremarkable CT AP with Small bilateral nonobstructing renal calculi.
- Incomplete UA to analyze
- pending CXR
- BCx sent
- agree with Zosyn
- IVF: switch to IV LR
- Trend T + WCC, LA
KAREN - pre renal vs. ATN due to sepsis
- Trend Cr
Bn HTN
- Hold RECEIVING WEIGHER Losartan, Nifedipine ER
- f/u BP
At risk for TME
Dementia - Alzheimer's type
Anxiety
- On Memantine and Donepezil
- ON paroxetine
- Fall precaution
Hyperlipidemia
- on Zetia
CAD/CABG H
- on aspirin plus Zetia
Hypothyroid
- on LT4
HX renal calculi
S/p laser lithotripsy of right renal calculi and stone extraction�07/04/[address] evidence of bilateral renal calculi and renal cysts
No evidence of UTI from urine analysis
DVT Px: LMWH renal adjusted dose
Full code
IP TLM
[2024-12-29] MEDS: ZOSYN 50 IV ×2 (13:49→19:36)
[2024-12-29] MEDS: NSS 500 IV (13:49)
--- NOTE | 2024-12-29 17:35 | CM ---
CM reviewed chart and met with pt and bedside in ED. Lives with in split level home, needs assistance with ADLs and personal care. Independent in ambulation, does have RW and SPC in home.
Hx VN in past, unsure of agency, hx [facility].
states [facility] nurse used to call and chek in but she has not heard from anyone in awhile. Spoke to Giulia who said he was discharged from nursing calls last September but she will reactivate once he is discharged. She will add cell phone number to
[facility] records as they no longer have a landline.
PCP: Sangita Acosta
Pharmacy: [facility]
CM will continue to follow for discharge planning needs.
--- NOTE | 2024-12-29 18:00 | PTCARENOTE ---
1730 Pt arrived from ER via stretcher, confused, alert to his name mainly. Bed alarm in place. VS stable, pulse ox 97% on room air. Noted MD orders. Pt's at bedside, explain pt able to have regular diet. Checked skin assessment, call brown
within reach, continue to monitor pt closely.
[2024-12-29] MEDS: HEPARIN 5000 UNITS SC (19:23)
[2024-12-29] MEDS: NAMENDA 10 MG PO (19:24)
[2024-12-29] MEDS: LR 1000 IV (19:24)
[2024-12-29] MEDS: TYLENOL 650 MG PO (19:24)
[2024-12-29] MEDS: FLOMAX 0.4 MG PO (19:24)
[2024-12-29] MEDS: MELATONIN 5 MG PO (21:10)
[2024-12-29] MEDS: SEROQUEL 25 MG PO (21:10)
[2024-12-30] VITALS (8 sets, daily range): BP systolic 123–158; BP diastolic 59–73
[2024-12-30] MEDS: ZOSYN 50 IV ×4 (02:11→20:27)
[2024-12-30] MEDS: LR 1000 IV ×2 (05:44→17:29)
[2024-12-30] MEDS: SYNTHROID 75 MCG PO (05:44)
--- NOTE | 2024-12-30 07:19 | W.PN.HOSP.TC ---
Today's Communication/Plan
-
Continue IV Zosyn, following cultures
Assessment / Plan
Assessment / Plan
Sepsis possibly secondary to UTI
-WBC 26.7 and lactic acid 3.5 on admission. Patient was febrile on 12/29/2024 with a recorded temperature of 102.8
-UA showed few bacteria, 3+ blood, 7-10 RBCs
-Chest X-ray showed no evidence of acute cardiopulmonary disease
-Continue IV Zosyn
-Pending blood cultures. One blood culture shows no growth to date, the other shows Klebsiella oxytoca. If this is not a contaminate, it could be the source of the bacteria present in his UA if he has a UTI from fecal source. It could however
represent a different infection.
-Consulted Infectious Disease, would appreciate their insight.
-Pending urine cultures
Acute Kidney Injury secondary to either dehydration or sepsis
-Creatinine 1.8 on admission
-Continue IV maintenance fluidsc
-Will trend BMP
Essential Hypertension
-Patient was hypotensive on arrival with BP of 84/41, but responded well to 2L NS
-HOLD home meds (Losartan and nifedipine)
History of Renal Calculi
-No current evidence of obstructing stones
Alzheimer�s Dementia
-Continue home meds (Aricept, Seroquel, Sertraline)
-Will be cautious about patient�s increased risk for falls given history of dementia and recent increased confusion
-Ordered PT/OT to evaluate and treat
BPH
-Continue home meds (Flomax)
Hypothyroidism
-Continue home meds (levothyroxine)
Hyperilipedima
-Continue home meds (Zetia)
GERD
-Continue PPI
History of Coronary Artery Disease with CABG
-Continue Aspirin
Anticipated Discharge: 24 - 48 hours
Subjective/Interval History
-
Date of Service: December 30, 2024
Patient was sitting comfortably in bed with his at the bedside when I arrived. Patient did not contribute to the conversation, and HPI was mostly contributed by his . She reports that starting one week ago, she noticed her getting
more confused without any difficulty in ambulating, falls, or weakness. She thought that this was related to him taking Sertraline (For increasing phobia of heights), which he was on an increasing taper, so she reached out to his PCP but did not
hear back immediately. When his confusion continued to increase, she brought him to the ED for evaluation.
She reports since yesterday patient was improved, though he has not returned to baseline. We discussed his care, during which time patient interrupted once to ask if this hospital was a part of [facility]. He otherwise remained focused on his
breakfast and answered with brief affirmatives or denials when directly asked questions. She states that her normally can walk 1-0.5 miles without assistance and is largely independent, though he is very forgetful and will not remember
information that is told to him. She did ask that all updates about his health be communicated to her as well since he would not remember to tell her, which patient agreed to.
Objective Data
-
Labs:
Laboratory Results
12/30/24
07:01
WBC Pending
Hgb Pending
Hct Pending
Plt Count Pending
Vital Signs:
Vital Signs
Temp Pulse Resp BP Pulse Ox
97.8 F 67 16 128/65 96
12/30/24 03:00 12/30/24 03:00 12/30/24 03:00 12/30/24 03:00 12/30/24 03:55
I&O
12/29/24 12/30/24 12/31/24
06:59 06:59 06:59
Intake Total 1650 / 1650
Balance 1650 / 1650
Review of Systems
-
Unable to obtain full review of systems at this time due to: Dementia
History Source: Patient and Family
Constitutional: Denies Fever, Fatigue, Chills or Weakness
Cardiac: Denies Chest Pain
Abdomen/GI: Reports Abdominal Pain (Patient and indicated pelvic region, bilateral, nonradiating); Denies Nausea, Vomiting or Diarrhea
Genitourinary: Denies Dysuria
Neuro: Denies Dizzy, Headache, Weakness, Numbness, Ataxia or Lightheadedness
Psych: Reports Other (Confusion)
Physical Exam
-
General: Well Developed, Well Nourished, No Apparent Distress and Comfortable
HEENT: Normocephalic and Atraumatic
Respiratory: Clear to Auscultation
Cardiac: Regular Rhythm and S1/S2
Skin: Warm and Dry
Neuro: Awake, Alert and Oriented (Location and self)
Psych: Calm
[2024-12-30] MEDS: PEPCID 20 MG PO (08:26)
[2024-12-30] MEDS: ZOLOFT 25 MG PO (08:26)
[2024-12-30] MEDS: HEPARIN 5000 UNITS SC (08:26)
[2024-12-30] MEDS: ASPIRIN 325 MG PO (08:26)
[2024-12-30] MEDS: FLOMAX 0.4 MG PO ×2 (08:26→20:28)
[2024-12-30] MEDS: ARICEPT 5 MG PO (08:26)
[2024-12-30] MEDS: ZETIA 10 MG PO (08:26)
[2024-12-30 08:33] LABS: Hematocrit 38.1 % (39.0-52.0); Hemoglobin 12.7 g/dL (13.0-18.0); Mean Corp Hgb Conc. 33.3 g/dL (33.0-37.0); Mean Corpuscular Volume 88.8 fL (80.0-94.0); Red Cell Dist. Width 15.2 % (11.5-14.5)
[2024-12-30] MEDS: NAMENDA 10 MG PO ×2 (08:43→20:28)
[2024-12-30 09:03] LABS: Blood Urea Nitrogen 35 mg/dl (9-20); Calcium 8.1 mg/dl (8.4-10.2); Carbon Dioxide 24 mmol/L (22-30); Chloride 108 mmol/L (98-107); Estimated Creatinine Clearance 39 ml/min; Glucose 83 mg/dl (70-99); Potassium 4.2 mmol/L (3.5-5.1); Sodium 139 mmol/L (135-145); eGFR 46.48
[2024-12-30 09:20] LABS: Platelet Count 100 10^3/uL (130-400)
--- NOTE | 2024-12-30 16:53 | CON.ID ---
Consultation
-
Date/Time Consultation Requested: 12/30/2024 1217
Date/Time Consultation Performed: 12/30/2024 1615
Requesting Provider: Dr. Cruz
Performing Provider: Dr. Padilla
Reason for Consultation: Bacteremia
Chief Complaint / Past History
History of Present Illness
Michael Acosta is an 79-year-old man being evaluated at the request of Dr. Cruz regarding bacteremia. History is obtained from chart review, along with patient interview. Additional history was obtained from the patient's who was at the
bedside.
The patient has a significant past medical history of dementia, and the reports that approximately 3 weeks ago he was started on Zoloft. 2 days ago the reached out to Neurology because he seemed to be acting funny, not knowing what basic
articles were (toothbrush, cup, keys), along with fatigue and generalized weakness. At the advice of the physician, he was sent to the emergency room for further evaluation as this seemed a significant departure from his baseline
In the ER he was noted to have a marked leukocytosis of 26,000 with a significant left shift. Additionally, he was noted to have KAREN. Blood cultures obtained at the time of admission are now positive for Klebsiella oxytoca, and Infectious Diseases
is asked to comment upon further antibiotic management. The patient has been initiated on empiric antibiotics.
At this time, the patient denies any complaints. Specifically he denies any pain. His notes no recent fevers. No history of rigors.
Past History
Additional Past Medical History:
Dementia
CAD
HTN
HLD
Vertigo
Additional Past Surgical History:
CABG
Allergy History:
No Known Allergies Allergy (Verified 12/29/24 10:16)
Medications Reviewed: Yes
Current Antibiotics:
Zosyn 2.25 g IV every 6 hours
Social History
Tobacco: Non-Smoker
Alcohol: None
Drug: None
Personal:
Living: With Family
Employment: Retired
Family History
Family History: Not Pertinent
Review of Systems
Vital Signs
Temp Pulse Resp BP Pulse Ox
98.1 F 72 20 124/59 95
12/30/24 15:25 12/30/24 15:25 12/30/24 15:25 12/30/24 15:25 12/30/24 15:25
Physical Exam
Physical Exam
Constitutional: No Acute Distress, Comfortable, Chronically Ill and Non-toxic
Eyes: No Conjunctival Hemorrhage and Sclera Anicteric
Oral: No Thrush and No Ulcers
Cardiovascular: S1/S2; Negative S3/S4
Pulmonary: Clear; Negative Wheezes, Rales or Rhonchi
Gastrointestinal: Soft, Non Tender, Non Distended, Normal Bowel Sounds, No Rebound and No Guarding
Genito-Urinary: Negative Pollard
Extremities: Negative Edema, Clubbing or Cyanosis
Skin: Negative Rash or Jaundice
Wound: None
Neurological: Awake and Alert
Psychological: Confused
Lab / Diagnostic Study Results
12/30/24 07:01
12/30/24 07:01
Total Counted 100 12/29/24 10:43
Abs Neuts (Manual) 25.8 10^3/uL (1.4-6.5) H 12/29/24 10:43
Segmented Neutrophils 82 % (42-75) H 12/29/24 10:43
Band Neutrophils 15 % (0-3) H 12/29/24 10:43
Lymphocytes (Manual) 1 % (20-51) L 12/29/24 10:43
Lactic Acid 1.6 mmol/L (0.7-2.0) 12/29/24 23:15
Ur Squamous Epith Cells 3-5 /LPF (Few) 12/29/24 13:00
Microbiology Results
Micro:
12/29/24 13:00 Urine Culture - Final
Urine NO GROWTH
12/29/24 11:11 Blood Culture - Preliminary
Blood/Venous No Growth in 24 hours- Final report to follow
12/29/24 11:11 Blood Culture - Preliminary
Blood/Venous Klebsiella oxytoca
Gram Stain - Preliminary
Imaging:
12/29/2024 CT abdomen/pelvis without IV contrast: Limited study secondary to lack of contrast. Small bilateral nonobstructing renal calculi. No gross findings to suggest obstructive uropathy. Small bilateral simple renal cysts. Enlarged prostate.
Relatively diffuse thickening of the urinary bladder wall due to either underdistention or bladder outlet obstruction. Distal colonic diverticulosis without intestinal obstruction or free air. Please see full dictation for additional detail.
12/29/2024 CXR (2 view): No evidence of active cardiopulmonary disease.
Assessment / Plan
Klebsiella oxytoca bacteremia
- Suspect urinary or potentially biliary source
Leukocytosis; improved
Thrombocytopenia
KAREN; improved
Hx nephrolithiasis
Dementia
CAD
HTN
HLD
Vertigo
Recommendations:
Continue with empiric Zosyn; increase dose to 3.375 g IV every 6 hours
Follow pending cultures, await final sensitivities to guide further antibiotic selection and potential de-escalation.
Monitor white count and temperature curve.
[2024-12-30] MEDS: FLUSH (NSS) 2 FLUSH IV (20:29)
[2024-12-30] MEDS: TYLENOL 650 MG PO (20:51)
[2024-12-30] MEDS: MELATONIN 5 MG PO (22:47)
[2024-12-30] MEDS: SEROQUEL 25 MG PO (22:47)
[2024-12-31] MEDS: ZOSYN 50 IV ×4 (02:06→20:16)
[2024-12-31] MEDS: FLUSH (NSS) 2 FLUSH IV ×2 (02:06→20:16)
[2024-12-31] MEDS: SYNTHROID 75 MCG PO (05:04)
[2024-12-31 05:22] VITALS: BMI 26.2
--- NOTE | 2024-12-31 07:04 | W.PN.HOSP.TC ---
Today's Communication/Plan
-
Following cultures
Assessment / Plan
Assessment / Plan
Sepsis possibly secondary to UTI
-WBC 26.7 and lactic acid 3.5 on admission. Patient was febrile on 12/29/2024 with a recorded temperature of 102.8
-UA showed few bacteria, 3+ blood, 7-10 RBCs
-Chest X-ray showed no evidence of acute cardiopulmonary disease
-Continue IV Zosyn
-Pending blood cultures. One blood culture shows no growth to date, the other shows Klebsiella oxytoca. If this is not a contaminate, it could be the source of the bacteria present in his UA, though the urine culture did not grow anything. It could
however represent a different infection.
-Consulted Infectious Disease, would appreciate their insight.
-Urine cultures showed no growth to date.
Acute Kidney Injury secondary to either dehydration or sepsis
-Creatinine 1.8 on admission
-Continue IV maintenance fluidsc
-Will trend BMP
Essential Hypertension
-Patient was hypotensive on arrival with BP of 84/41, but responded well to 2L NS
-HOLD home meds (Losartan and nifedipine)
History of Renal Calculi
-No current evidence of obstructing stones
Alzheimer�s Dementia
-Continue home meds (Aricept, Seroquel, Sertraline)
-Will be cautious about patient�s increased risk for falls given history of dementia and recent increased confusion
-Continue PT/OT
BPH
-Continue home meds (Flomax)
Hypothyroidism
-Continue home meds (levothyroxine)
Hyperlipemia
-Continue home meds (Zetia)
GERD
-Continue PPI
History of Coronary Artery Disease with CABG
-Continue Aspirin
Anticipated Discharge: 24 - 48 hours
Subjective/Interval History
-
Date of Service: December 31, 2024
Patient was sleeping comfortably with a nurse at his bedside when I arrived. His was not present at the time. Per his nurse he had been woken up earlier to have his labs drawn, at which point he was annoyed that he was not allowed to continue
sleeping. He was willing to answer questions with short, one-word answers which is unchanged from yesterday in which he did not participate much in his own HPI. I returned later, at which point his was there. She states he is doing much better,
though being in the hospital has made it hard to keep his schedule of getting up/getting dressed/walking around. She notices him sleeping more in the hospital which she attributes to boredom as normally she tries to keep him on a very busy routine
to help his Dementia.
Objective Data
-
Labs:
Laboratory Results
12/31/24
07:02
WBC Pending
Hgb Pending
Hct Pending
Plt Count Pending
Sodium Pending
Potassium Pending
Chloride Pending
Carbon Dioxide Pending
BUN Pending
Creatinine Pending
Glucose Pending
Calcium Pending
Vital Signs:
Vital Signs
Temp Pulse Resp BP Pulse Ox
98.1 F 68 16 142/59 95
12/31/24 03:30 12/31/24 03:30 12/31/24 03:30 12/30/24 23:09 12/31/24 03:30
I&O
12/30/24 12/31/24 01/01/25
06:59 06:59 06:59
Intake Total 1650 / 1650 2030 / 2030
Output Total 925 / 925
Balance 1650 / 1650 1105 / 1105
Review of Systems
-
Unable to obtain full review of systems at this time due to: Dementia
History Source: Patient and Family
Respiratory: Denies Cough
Abdomen/GI: Denies Abdominal Pain, Vomiting, Diarrhea or Constipated
Physical Exam
-
General: Well Developed, Well Nourished, No Apparent Distress and Comfortable
Respiratory: Clear to Auscultation
Cardiac: Regular Rhythm and S1/S2
Skin: Warm and Dry
Neuro: Awake and Alert
[2024-12-31 07:20] VITALS: BP 174/85
[2024-12-31] MEDS: ASPIRIN 325 MG PO (07:58)
[2024-12-31] MEDS: ZOLOFT 25 MG PO (07:58)
[2024-12-31] MEDS: NAMENDA 10 MG PO ×2 (07:58→20:15)
[2024-12-31] MEDS: PEPCID 20 MG PO (07:58)
[2024-12-31] MEDS: FLOMAX 0.4 MG PO ×2 (07:58→20:15)
[2024-12-31] MEDS: ZETIA 10 MG PO (07:58)
[2024-12-31] MEDS: ARICEPT 5 MG PO (07:58)
[2024-12-31 08:29] LABS: Hematocrit 38.1 % (39.0-52.0); Hemoglobin 12.4 g/dL (13.0-18.0); Mean Corp Hgb Conc. 32.5 g/dL (33.0-37.0); Mean Corpuscular Volume 89.4 fL (80.0-94.0); Platelet Count 90 10^3/uL (130-400); Red Cell Dist. Width 15.3 % (11.5-14.5)
[2024-12-31 08:55] LABS: Blood Urea Nitrogen 24 mg/dl (9-20); Calcium 8.6 mg/dl (8.4-10.2); Chloride 109 mmol/L (98-107); Potassium 3.9 mmol/L (3.5-5.1); Sodium 140 mmol/L (135-145)
[2024-12-31 09:25] LABS: ALT (SGPT) 20 U/L (0-50); AST (SGOT) 15 U/L (17-59); Albumin 3.0 g/dl (3.5-5.0); Alkaline Phosphatase 100 U/L (38-126); Carbon Dioxide 25 mmol/L (22-30); Estimated Creatinine Clearance 48 ml/min; Glucose 86 mg/dl (70-99); Total Protein 5.5 g/dl (6.3-8.2); eGFR > 60.00
--- NOTE | 2024-12-31 10:03 | W.PN.ID1 ---
Date of Service
Date of Service: December 31, 2024
Today's Communication
Continue abx.
Assessment / Plan
Klebsiella oxytoca bacteremia
- Suspect urinary or potentially biliary source
Leukocytosis; improved
Thrombocytopenia
KAREN; improved
Hx nephrolithiasis
Dementia
CAD
HTN
HLD
Vertigo
Recommendations:
Continue with empiric Zosyn 3.375 g IV every 6 hours
Follow pending cultures, await final sensitivities to guide further antibiotic selection and potential de-escalation.
Monitor white count and temperature curve.
Chief Complaint
-: Bacteremia
Subjective / Review of Systems
Review of Systems: No Fever
Vital Signs / Physical Exam
Vital Signs
Vital Signs
Temp Pulse Resp BP Pulse Ox
98.5 F 64 16 174/85 95
12/31/24 07:20 12/31/24 07:20 12/31/24 07:20 12/31/24 07:20 12/31/24 07:20
Physical Exam
Constitutional: No Acute Distress, Comfortable, Chronically Ill and Non-toxic
Cardiovascular: S1/S2; Negative S3/S4 or Murmur
Pulmonary: Clear and Non Labored
Gastrointestinal: Soft, Non Distended and Normal Bowel Sounds
Extremities: Negative Edema, Cyanosis or Erythema
Psychological: Calm
Objective Data
Lab Data
Lab Results
12/31/24 07:02
12/31/24 07:02
Estimated Creat Clear 48 ml/min 12/31/24 07:02
Lactic Acid 1.6 mmol/L (0.7-2.0) 12/29/24 23:15
Total Bilirubin 1.0 mg/dl (0.2-1.3) 12/31/24 07:02
AST 15 U/L (17-59) L 12/31/24 07:02
ALT 20 U/L (0-50) 12/31/24 07:02
Alkaline Phosphatase 100 U/L (38-126) 12/31/24 07:02
Most recent labs reviewed.
Micro Results:
12/29/24 11:11 Blood Culture - Preliminary
Blood/Venous Klebsiella oxytoca
Gram Stain - Preliminary
12/29/24 13:00 Urine Culture - Final
Urine NO GROWTH
12/29/24 11:11 Blood Culture - Preliminary
Blood/Venous No Growth in 24 hours- Final report to follow
Imaging:
12/29/2024 CT abdomen/pelvis without IV contrast: Limited study secondary to lack of contrast. Small bilateral nonobstructing renal calculi. No gross findings to suggest obstructive uropathy. Small bilateral simple renal cysts. Enlarged prostate.
Relatively diffuse thickening of the urinary bladder wall due to either underdistention or bladder outlet obstruction. Distal colonic diverticulosis without intestinal obstruction or free air. Please see full dictation for additional detail.
12/29/2024 CXR (2 view): No evidence of active cardiopulmonary disease.
[2024-12-31 11:04] VITALS: BP 161/78
--- NOTE | 2024-12-31 11:35 | VATNOTE ---
During routine rounds, attempted to clamp the IV in pt's R forearm but pt yelled at this RN 'DON'T MESS WITH IT.' When this RN explained what was being done and the rationale for it, and pt repeated 'DON'T MESS WITH IT!' Pt's at the bedside
told pt not to yell. This RN left IV unclamped at pt's urging.
--- NOTE | 2024-12-31 11:36 | CM ---
CM reviewed chart, patient seen bedside with . CM discussed therapy recommendations of home with 24/ supervision. reports she provides care to patient, is agreeable to referral to [facility] for PT services. eager for patient to discharge,
concerned with patient remaining in bed, reports they have a very specific routine at home. IMM verbally reviewed and provided to , will provide transport home when stable. CM will continue to follow for all discharge planning needs.
Plan; home with , [facility]
--- NOTE | 2024-12-31 12:23 | VNURNOTE ---
Home Health Liaison met with patient and spouse at bedside to discuss [facility] nurse/therapy, visits, schedule and homebound status. Spouse is familiar with VN. She states that she plans on taking the pt out of the house frequently once DC'ed. Will
not meet homebound criteria. Spouse verbalizes understanding and declines VN. She plans on following up with PCP upon DC.
CM Yun updated, no referral placed.
[2024-12-31 15:24] VITALS: BP 151/70
--- NOTE | 2024-12-31 17:34 | W.PN.UPDATE ---
Update Note
Progress Note Update
Patient's called requesting an update about her . I called her back to let her know we were still pending specificities on the blood culture that had grown Klebsiella oxytoca, and the time frame in which we might be able to anticipate
this happening. I spent time counselling her on ensuring her takes any antibiotics he might be discharged with until the entire course is completed, and that he would only be discharged from the hospital once he was medically stable and safe
for discharge. She vocalized understanding of this plan. Total time spent counselling her was approximately 8 minutes.
[2024-12-31 19:00] VITALS: BP 164/74
[2024-12-31 21:26] LABS: Glucose - Point of Care 107 mg/dl (70-99)
[2024-12-31] MEDS: MELATONIN 5 MG PO (22:44)
[2024-12-31] MEDS: SEROQUEL 25 MG PO (22:44)
[2024-12-31 23:00] VITALS: BP 157/79
[2025-01-01] MEDS: ZOSYN 50 IV ×3 (02:28→14:21)
[2025-01-01] MEDS: FLUSH (NSS) 2 FLUSH IV (02:29)
[2025-01-01 03:00] VITALS: BP 172/82
[2025-01-01 06:00] VITALS: BMI 26.2
[2025-01-01] MEDS: SYNTHROID 75 MCG PO (06:38)
[2025-01-01 07:32] VITALS: BP 168/80
[2025-01-01] MEDS: ARICEPT 5 MG PO (07:45)
[2025-01-01] MEDS: PEPCID 20 MG PO (07:45)
[2025-01-01] MEDS: ZETIA 10 MG PO (07:45)
[2025-01-01] MEDS: NAMENDA 10 MG PO (07:45)
[2025-01-01] MEDS: ASPIRIN 325 MG PO (07:45)
[2025-01-01] MEDS: FLOMAX 0.4 MG PO (07:45)
[2025-01-01] MEDS: ZOLOFT 25 MG PO (07:46)
[2025-01-01 08:24] LABS: Hematocrit 37.6 % (39.0-52.0); Hemoglobin 12.4 g/dL (13.0-18.0); Mean Corp Hgb Conc. 33.0 g/dL (33.0-37.0); Mean Corpuscular Volume 89.5 fL (80.0-94.0); Platelet Count 120 10^3/uL (130-400); Red Cell Dist. Width 15.4 % (11.5-14.5)
[2025-01-01 08:53] LABS: ALT (SGPT) 19 U/L (0-50); AST (SGOT) 15 U/L (17-59); Albumin 3.0 g/dl (3.5-5.0); Alkaline Phosphatase 125 U/L (38-126); Blood Urea Nitrogen 18 mg/dl (9-20); Calcium 8.2 mg/dl (8.4-10.2); Carbon Dioxide 26 mmol/L (22-30); Chloride 106 mmol/L (98-107); Estimated Creatinine Clearance 58 ml/min; Glucose 87 mg/dl (70-99); Potassium 3.7 mmol/L (3.5-5.1); Sodium 137 mmol/L (135-145); Total Protein 5.4 g/dl (6.3-8.2); eGFR > 60.00
[2025-01-01 11:36] VITALS: BP 174/76
[2025-01-01 11:49] VITALS: BP 167/79
--- NOTE | 2025-01-01 12:16 | W.PN.ID1 ---
Date of Service
Date of Service: January 01, 2025
Today's Communication
Continue antibiotics. See below�
Assessment / Plan
Klebsiella oxytoca bacteremia
- Suspect urinary or potentially biliary source
Leukocytosis; improved
Thrombocytopenia
KAREN; improved
Hx nephrolithiasis
Dementia
CAD
HTN
HLD
Vertigo
Recommendations:
White count has normalized. Patient remains afebrile.
Sensitivities reviewed.
Transition to oral cefdinir 300 mg BID at discharge, to continue through 01/12/2025
Chief Complaint
-: Bacteremia
Subjective / Review of Systems
Patient seen and examined. reports he is now back to baseline from a cognition standpoint.
Review of Systems: No Fever and No Chills
Vital Signs / Physical Exam
Vital Signs
Vital Signs
Temp Pulse Resp BP Pulse Ox
97.8 F 58 20 167/79 96
01/01/25 11:36 01/01/25 11:49 01/01/25 11:36 01/01/25 11:49 01/01/25 11:36
Physical Exam
Constitutional: No Acute Distress, Comfortable, Chronically Ill and Non-toxic
Cardiovascular: S1/S2; Negative S3/S4 or Murmur
Pulmonary: Clear and Non Labored
Gastrointestinal: Soft, Non Distended and Normal Bowel Sounds
Extremities: Negative Edema, Cyanosis or Erythema
Psychological: Calm
Objective Data
Lab Data
Lab Results
01/01/25 07:26
01/01/25 07:27
Estimated Creat Clear 58 ml/min 01/01/25 07:27
Lactic Acid 1.6 mmol/L (0.7-2.0) 12/29/24 23:15
Total Bilirubin 1.1 mg/dl (0.2-1.3) 01/01/25 07:27
AST 15 U/L (17-59) L 01/01/25 07:27
ALT 19 U/L (0-50) 01/01/25 07:27
Alkaline Phosphatase 125 U/L (38-126) 01/01/25 07:27
Most recent labs reviewed.
Micro Results:
12/29/24 11:11 Blood Culture - Preliminary
Blood/Venous No Growth in 72 hours- Final report to follow
12/29/24 11:11 Blood Culture - Preliminary
Blood/Venous Klebsiella oxytoca
Gram Stain - Preliminary
12/29/24 13:00 Urine Culture - Final
Urine NO GROWTH
Imaging:
12/29/2024 CT abdomen/pelvis without IV contrast: Limited study secondary to lack of contrast. Small bilateral nonobstructing renal calculi. No gross findings to suggest obstructive uropathy. Small bilateral simple renal cysts. Enlarged prostate.
Relatively diffuse thickening of the urinary bladder wall due to either underdistention or bladder outlet obstruction. Distal colonic diverticulosis without intestinal obstruction or free air. Please see full dictation for additional detail.
12/29/2024 CXR (2 view): No evidence of active cardiopulmonary disease.
Care Review
Plan reviewed with: Physician (Resident)
--- NOTE | 2025-01-01 13:17 | W.DCSUMMARY ---
Documented by User: Rae Cruz DO, Resident 01/01/25 13:37
Discharge Summary
Discharge Data
Date of Admission: 12/29/24
Date of Discharge: 01/01/25
-
Pending Results: No
Hospital Course
This is an 79 y/o male with mph of Alzheimer�s Dementia, Choledocholithiasis, kidney stones who presented from home to the ED on 12/29/2024 with worsening confusion and weakness over the last 3-4 days. On 12/28/2024 he was complaining of abdominal pain
and nausea with dry heaving without any episodes of vomiting, which was accompanied by poor appetite. He had no fevers, chills, chest pain, shortness of breath, dysuria or hematuria at that time.
Upon admission to the ED he was in sepsis. IV Zosyn was started and patient was admitted to the hospital. CT abdomen/pelvis showed bilateral nonobstructing renal calculi , enlarged prostate gland, relative diffuse thickening of the urinary bladder,
diverticulosis. His reported improvement in his mentation by the second day of his hospital course. His urinalysis was positive for few bacteria, but urine cultures ultimately did not grow bacteria. One blood culture grew Klebsiella oxytoca. On
01/01/2025 patient was found to be clinically stable and discharged to home on Cefdinir 300mg BID until 01/12/2025, and instructions to follow up with his PCP in less than one week.
Discharge Plan
-
Patient Disposition: Home (Routine Discharge)
Discharge Diagnosis/Procedures: Sepsis due to bacteremia of unknown source, Acute Kidney Injury secondary to either dehydration or sepsis, Essential Hypertension, History of Renal calculi, Alzheimer's Dementia, Benign prostatic hyperplasia,
Hypothyroidism, Hyperlipidemia, Gastroesophageal Reflux Disease
Condition: Good
Diet: No restrictions
Activity: No restrictions
Driving Restrictions: As prior to admission
Bathing Restrictions: None
Referrals:
Sangita Joyce DO [Family Provider, Family Practice] - in less than 1 week
Additional Discharge Medication Instructions: We are prescribing you an antibiotic known as Cefdinir. It is important to take this antibiotic twice a day every day until the entire course of antibiotics is complete.
Prescriptions:
New
cefdinir 300 mg capsule
300 mg PO BID 11 Days Qty: 22 0RF
Continued
famotidine [Pepcid AC] 20 MG tablet
20 mg PO BID
losartan 50 mg Tablet
50 mg PO HS
levothyroxine 75 mcg Tablet
75 mcg PO DAILY
donepezil 5 mg Tablet
5 mg PO DAILY
nifedipine 30 mg tablet extended release
30 mg PO HS
ezetimibe [Zetia] 10 mg Tablet
10 mg PO DAILY
memantine 10 mg Tablet
10 mg PO BID
quetiapine [Seroquel] 25 mg Tablet
25 mg PO HS
acetaminophen [Tylenol] 325 mg Tablet
325 mg PO HSPRN PRN (Reason: mild pain)
aspirin 325 mg Tablet
325 mg PO DAILY
tamsulosin [Flomax] 0.4 mg Capsule
0.4 mg PO BID
naproxen sodium [Aleve] 220 mg Tablet
220 mg PO DAILYPRN PRN (Reason: mild pain)
docusate sodium [Colace] 100 mg Capsule
100 mg PO Q48H
sertraline 25 mg Tablet
25 mg PO DAILY
melatonin 5 mg Tablet
5 mg PO HS
Discharge Orders:
Discharge Patient (As Directed); Ordered 01/01/25
Ordered By: Rae Cruz
Discharge Date and Time
Print Language: MARTINIQUAIS

Documented by User: Kenneth Mclean DO 01/01/25 13:44
Discharge Summary
Discharge Data
Date of Admission: 12/29/24
Date of Discharge: 01/01/25
Total time spent discharging patient (in min): 31
Discharge Plan
-
Patient Disposition: Home (Routine Discharge)
Discharge Diagnosis/Procedures: Sepsis due to bacteremia of unknown source, Acute Kidney Injury secondary to either dehydration or sepsis, Essential Hypertension, History of Renal calculi, Alzheimer's Dementia, Benign prostatic hyperplasia,
Hypothyroidism, Hyperlipidemia, Gastroesophageal Reflux Disease
Condition: Good
Diet: No restrictions
Activity: No restrictions
Driving Restrictions: As prior to admission
Bathing Restrictions: None
Referrals:
Sangita Joyce DO [Family Provider, [facility]] - in less than 1 week
Additional Discharge Medication Instructions: We are prescribing you an antibiotic known as Cefdinir. It is important to take this antibiotic twice a day every day until the entire course of antibiotics is complete.
Prescriptions:
New
cefdinir 300 mg capsule
300 mg PO BID 11 Days Qty: 22 0RF
Continued
famotidine [Pepcid AC] 20 MG tablet
20 mg PO BID
losartan 50 mg Tablet
50 mg PO HS
levothyroxine 75 mcg Tablet
75 mcg PO DAILY
donepezil 5 mg Tablet
5 mg PO DAILY
nifedipine 30 mg tablet extended release
30 mg PO HS
ezetimibe [Zetia] 10 mg Tablet
10 mg PO DAILY
memantine 10 mg Tablet
10 mg PO BID
quetiapine [Seroquel] 25 mg Tablet
25 mg PO HS
acetaminophen [Tylenol] 325 mg Tablet
325 mg PO HSPRN PRN (Reason: mild pain)
aspirin 325 mg Tablet
325 mg PO DAILY
tamsulosin [Flomax] 0.4 mg Capsule
0.4 mg PO BID
naproxen sodium [Aleve] 220 mg Tablet
220 mg PO DAILYPRN PRN (Reason: mild pain)
docusate sodium [Colace] 100 mg Capsule
100 mg PO Q48H
sertraline 25 mg Tablet
25 mg PO DAILY
melatonin 5 mg Tablet
5 mg PO HS
Discharge Orders:
Discharge Patient (As Directed); Ordered 01/01/25
Ordered By: Rae Cruz
Discharge Date and Time
Print Language: MARTINIQUAIS
--- NOTE | 2025-01-01 13:35 | W.PN.HOSP.TC ---
Today's Communication/Plan
-
Discharge today
Assessment / Plan
Assessment / Plan
Sepsis possibly secondary to UTI
-WBC 26.7 and lactic acid 3.5 on admission. Patient was febrile on 12/29/2024 with a recorded temperature of 102.8
-UA showed few bacteria, 3+ blood, 7-10 RBCs. Urine cultures showed no growth to date.
-Chest X-ray showed no evidence of acute cardiopulmonary disease
-Blood cultures for Klebsiella oxytoca have returned sensitivities today
-Per ID recommendation, started patient on Cefdinir 300mg BID until 01/12/2025 upon discharge
Acute Kidney Injury secondary to either dehydration or sepsis - RESOLVED
-Creatinine 1.8 on admission, now 1.0
Essential Hypertension
-Patient was hypotensive on arrival with BP of 84/41, but responded well to 2L NS.
-Restart home meds (Losartan and nifedipine)
History of Renal Calculi
-No current evidence of obstructing stones
Alzheimer�s Dementia
-Continue home meds (Aricept, Seroquel, Sertraline)
-Will be cautious about patient�s increased risk for falls given history of dementia and recent increased confusion
-Continue PT/OT
BPH
-Continue home meds (Flomax)
Hypothyroidism
-Continue home meds (levothyroxine)
Hyperlipemia
-Continue home meds (Zetia)
GERD
-Continue PPI
History of Coronary Artery Disease with CABG
-Continue Aspirin
Anticipated Discharge: Today
Subjective/Interval History
-
Date of Service: January 01, 2025
Patient was watching TV and eating breakfast when I arrived. His was not present. He reported to me that he was feeling 'lousy'. He did not answer me when I attempted to ask him if he was feeling shortness of breath, chest pain, nausea or
tired, and responded 'just lousy.' I asked if it was okay if I performed a focused physical exam, and he requested that I just, 'get out his hair.' The exam today was thus limited.
Objective Data
-
Labs:
Laboratory Results
01/01/25
06:00
WBC Pending
Hgb Pending
Hct Pending
Plt Count Pending
Sodium Pending
Potassium Pending
Chloride Pending
Carbon Dioxide Pending
BUN Pending
Creatinine Pending
Glucose Pending
Calcium Pending
Total Bilirubin Pending
AST Pending
ALT Pending
Alkaline Phosphatase Pending
Vital Signs:
Vital Signs
Temp Pulse Resp BP Pulse Ox
98.4 F 67 18 172/82 100
01/01/25 03:00 01/01/25 03:00 01/01/25 03:00 01/01/25 03:00 01/01/25 03:00
I&O
12/31/24 01/01/25 01/02/25
06:59 06:59 06:59
Intake Total 2030 / 2029 120 / 120
Output Total 925 / 925
Balance 1105 / 1105 120 / 120
Review of Systems
-
Unable to obtain full review of systems at this time due to: Dementia and Other (Patient Refusal)
History Source: Patient (See HPI)
Physical Exam
-
General: Well Developed, Well Nourished, No Apparent Distress and Comfortable
HEENT: Normocephalic and Atraumatic
Respiratory: Other (Refused by patient)
Cardiac: Other (Refused by patient)
Neuro: Awake and Alert
Psych: Agitated
--- NOTE | 2025-01-01 14:22 | CM ---
CM reviewed chart, patient seen bedside with , plan for discharge today. will provide transportation home. CM will continue to follow for all discharge planning needs.
Plan; home with , declining [facility] at this time as patient is not homebound
[2025-01-01 14:31] VITALS: BP 148/75
[2025-01-01 14:45] VITALS: BP 149/67
== END 2025-01-01 16:06 | disposition home or self-care (01) | DRG 872 ==
LOC: 4 WEST ACU 14:32
PROVIDERS: Physician Assistant; Registered Nurse; ADMITTING PHYSICIAN Internal Medicine; ATTENDING PHYSICIAN Internal Medicine; EMERGENCY PHYSICIAN Emergency Medicine; FAMILY PHYSICIAN Family Medicine; OTHER PHYSICIAN Internal Medicine Infectious Disease
DX: A41.9 Sepsis, unspecified organism (principal); F02.84 Dementia in other diseases classified elsewhere, unspecified severity, with anxiety; N17.9 Acute kidney failure, unspecified; G30.9 Alzheimer's disease, unspecified; E78.00 Pure hypercholesterolemia, unspecified; I10 Essential (primary) hypertension; I25.10 Atherosclerotic heart disease of native coronary artery without angina pectoris; N20.0 Calculus of kidney; I95.9 Hypotension, unspecified; N28.1 Cyst of kidney, acquired; N40.0 Benign prostatic hyperplasia without lower urinary tract symptoms; K57.30 Diverticulosis of large intestine without perforation or abscess without bleeding; D69.6 Thrombocytopenia, unspecified; B96.89 Other specified bacterial agents as the cause of diseases classified elsewhere; E86.0 Dehydration; I71.43 Infrarenal abdominal aortic aneurysm, without rupture; E03.9 Hypothyroidism, unspecified; K21.9 Gastro-esophageal reflux disease without esophagitis; Z95.1 Presence of aortocoronary bypass graft; Z87.442 Personal history of urinary calculi; Z87.891 Personal history of nicotine dependence; Z86.73 Personal history of transient ischemic attack (TIA), and cerebral infarction without residual deficits; Z79.890 Hormone replacement therapy; Z79.82 Long term (current) use of aspirin
CPT/HCPCS: 51701; 71046; 74176; 80048; 80053; 81003; 81015; 82248; 82962; 83605; 83690; 84484; 85025; 85027; 87040; 87077; 87086; 87154; 87186; 87205; 93005; 96361; 96365; 96375; 97162; 97167; 97535; 99285